=== PATIENT | male | born 1940 | race Caucasian/White ===

== ENCOUNTER 2016-10-24 15:15 | Emergency (ER) ==
[2016-10-24 15:34] VITALS: BP 96/64; TEMP 98.3; BMI 31.1
--- NOTE | 2016-10-24 15:50 | ED.PDOC ---
General ED Provider: Dr. MARCY SPRAGUE JR Chief Complaint: Cellulitis Stated Complaint: LEFT UPPER ARM RED, PURPLE WITH EDEMA AND DRAINING NOTED. PT STATES HE FELL ONE MONTH AGO.[End]98.3 82 16 97% 96/64. LEFT UPPER ARM WITH REDNESS AND SCANT AMOUNT OF DRAINAGE. PT STATES HE FELL OUT OF BED ONE MONTH AGO AT THE ALF. LEFT UPPER ARM WITH REDNESS AND SCANT AMOUNT OF DRAINAGE NOTED ON DRESSING. [ End ] Time Seen by Physician: 15:51 Mode of Arrival: Walk-In Information Source: Patient Exam Limitations: No limitations, Other (unable to visualise his own lesion) Primary Care Provider: MARGARITA HEATH Nursing and Triage Documentation Reviewed and Agree: No Skin Complaint Exam - Skin Rash/Itching Complaint/Exam Onset/Duration: 1 month Symptoms Are: Worse Initial Severity: Mild Current Severity: Moderate Location: left forearm Potential Exposures: Reports: Unknown Prior Treatment: bandage Aggravating: Reports: None Alleviating: Reports: None Associated Signs and Symptoms: Denies: Difficulty breathing, Fever, Chills Related History: Similar episode Skin Findings: Present: Purpura, Weeping skin (open area appears to be healing slightly tender slight weeping not a s pink as other areas ofskin damage on left elbow right forearm) Differential Diagnoses: Impetigo, Other (vacscular skin changes) Review of Systems - Review Of Systems Constitutional: Reports: No symptoms Eyes: Reports: No symptoms Ears, Nose, Mouth, Throat: Reports: No symptoms (concern for excess cerumen poor hearing in left ear full sensation on right- tms clear no cerumen bilat) Respiratory: Reports: No symptoms Cardiac: Reports: No symptoms GI: Reports: No symptoms : Reports: No symptoms Musculoskeletal: Reports: No symptoms Skin: Reports: Bruising, Lesions Neurological: Reports: No symptoms Endocrine: Reports: No symptoms Hematologic/Lymphatic: Reports: No symptoms All Other Systems: Other Past Medical History - Past Medical History Previously Healthy: No Endocrine: Reports: Other Cardiovascular: Reports: Other Respiratory: Reports: Other Hematological: Reports: Other Gastrointestinal: Reports: Other Genitourinary: Reports: Other Neuro/Psych: Reports: Other Musculoskeletal: Reports: Back Pain (chronic and shingles), Joint Pain (both shoulders) Cancer: Reports: Other Other Pertinent Past Medical History: MYASTHENIA;htn mi depr anx - Surgical History General Surgical History: Reports: CABG (left shoulder), Unknown - Family History Family History: Reports: Unknown - Social History Smoking Status: Former smoker Hx Substance Use: No Alcohol Screening: None - Immunizations Tetanus Shot up to Date: Yes Physical Exam - Physical Exam Appearance: Well-appearing Skin: Warm, Dry (note ecchymoses and area of slow ooze) Neurological: Sensation intact, Motor intact (limited ambulation), Reflexes intact, Cranial nerves intact, Alert, Oriented Psychiatric: Affect appropriate Critical Care Note - Critical Care Note Total Time (mins): 0 Course - Course Vital Signs: Temp Pulse Resp BP Pulse Ox 10/24/16 15:27 98.3 F 82 16 96/64 97 Departure - Departure Time of Disposition: 15:54 Disposition: HOME SELF-CARE Discharge Problem: Cellulitis Instructions: Cellulitis (ED) Condition: Good Pt referred to PMD for follow-up: Yes Additional Instructions: Bactrim for one week extra 8 ounces of water with each tablet Bacitracin twice a day for two weeks each forearm recheck 2-3 days Allergies/Adverse Reactions: Allergies tamsulosin HCl [From Flomax] Adverse Reaction (Verified 06/14/16 12:56) Home Medications: Ambulatory Orders Aspirin [Aspirin EC] 81 mg PO DAILYWM 01/14/14 Acetaminophen 650 mg PO TID PRN 03/11/14 Bisacodyl [Dulcolax] 1 supp.rect RC BID PRN 03/11/14 Diphenoxylate HCl/Atropine [Lomotil 2.5-0.025 mg Tablet] 1 each PO Q6HR PRN Ferrous Sulfate 325 mg PO DAILY 03/11/14 Insulin Regular, Human [Humulin R] 100 unit IJ BID PRN 03/11/14 Mag Hydrox/Al Hydrox/Simeth [Mylanta Susp] 30 ml PO Q6HR PRN 03/11/14 Magnesium Hydroxide [Milk of Magnesia] 30 ml PO DAILY PRN 03/11/14 Metoprolol Tartrate [Lopressor] 25 mg PO DAILY 03/11/14 Pyridostigmine [place] [Mestinon] 60 mg PO QID 03/11/14 Verapamil HCl [Calan Sr] 180 mg PO BEDTIME 03/11/14 Clopidogrel Bisulfate [Plavix] 75 mg PO DAILY 12/28/14 Ipratropium/Albuterol Sulfate [Duoneb 0.5 Mg-3 Mg/3 Ml Soln] 3 ml IH q4hprn 05/06 Lisinopril 20 mg PO DAILY 12/28/14 Loperamide HCl [Loperamide] 2 mg PO q6hprn PRN 12/28/14 Prednisone 5 mg PO DAILY 12/28/14 Alfuzosin HCl [Uroxatral] 10 mg PO DAILY 06/14/16 Budesonide/Formoterol Fumarate [Symbicort 80-4.5 Mcg Inhaler] 2 puff IH BID Cholecalciferol (Vitamin D3) [Vitamin D3] 2,000 unit PO DAILY 06/14/16 Duloxetine HCl [Cymbalta] 30 mg PO DAILY 06/14/16 Famciclovir [Famvir] 500 mg PO Q8H 06/14/16 Finasteride [Proscar] 5 mg PO DAILY 06/14/16 Furosemide [Lasix] 20 mg PO DAILY 06/14/16 Gabapentin [Neurontin] 100 mg PO BID 06/14/16 Guaifenesin [Cough Control] 200 mg PO Q4HR PRN 06/14/16 Hydrocodone Bit/Acetaminophen [Tyrone 10-325] 1 each PO Q6HR #60 tablet 06/14/16 Hydrocodone Bit/Acetaminophen [Tyrone 7.5-325] 1 tab PO DIRECTED 06/14/16 Lactobacillus Combination No.4 [Probiotic] 1 each PO DAILY 06/14/16 Melatonin [Melatin] 3 mg PO BEDTIME 06/14/16 Mycophenolate Mofetil [Cellcept] 1,500 mg PO BID 06/14/16 Nitroglycerin [Nitrostat] 0.4 mg SL Q5MIN X 3 DOSES PRN 06/14/16 Polyvinyl Alcohol [Artificial Tears] 1 drop EACHEYE DIRECTED PRN 06/14/16 Potassium Chloride 20 meq PO DAILY 06/14/16 Ranitidine HCl [Zantac] 150 mg PO BIDAC 06/14/16
[2016-10-24] MEDS ORDERED: POLYSPORIN 0.9 GM PACKET TP STA (15:55)
[2016-10-24] MEDS ORDERED: BACTRIM DS 800/160 MG PO STA (15:55)
== END 2016-10-24 16:48 | disposition home or self-care (01) ==
LOC: ED 15:15
DX: L03.114 Cellulitis of left upper limb (principal); W06.XXXS Fall from bed, sequela; Z79.899 Other long term (current) drug therapy
CPT/HCPCS: 99282

== ENCOUNTER 2018-01-25 02:35 | Inpatient (IN) | payer OTHER ==
--- NOTE | 2018-01-25 03:31 | ED.PDOC ---
General ED Provider: Dr. DORETHA CAVAZOS Chief Complaint: Weakness Stated Complaint: I feel weak and do not feel good. Denies symptoms. Nurse for NH states he has progressively worsened in past three days. In addition states has a reddeded swollen area under his rt arm-lat chest wall and axillary region. Time Seen by Physician: 03:15 Mode of Arrival: Wheelchair Information Source: Patient, [facility], Assisted Living Exam Limitations: No limitations Primary Care Provider: MARGARITA HEATH Nursing and Triage Documentation Reviewed and Agree: Yes Reviewed sepsis parameters & appropriate labs ordered?: Yes System Inflammatory Response Syndrome: Not Applicable Sepsis Protocol: For patient's 13 years and over: Temp is 96.8 and below OR 101 and greater Pulse >90 BPM Resp >20/minute Acutely Altered Mental Status Are patient's symptoms suggestive of a new infection, such as: -Pneumonia -Skin, Soft Tissue -Endocarditis -UTI -Bone, Joint Infection -Implantable Device -Acute Abdominal Infection -Wound Infection -Meningitis -Blood Stream Catheter Infection -Unknown System Inflammatory Response Syndrome: Not Applicable Miscellaneous Complaint Exam - Physical Examination Complaint/Exam Symptoms Are: Still present Timing: Constant Episodes Lasting: Hours Initial Severity: Moderate Current Severity: Moderate Location: Rt Axilla Character: dull aching Aggravating: movement Alleviating: rest Specific Findings: Large area of erythema in lat chest wall , axillary region with firm mass adherent to surrounding tissue approx 6 X6 cm Differential Diagnoses: Inflamatory mass Review of Systems - Review Of Systems Constitutional: Reports: Malaise, Weakness, Loss of appetite Eyes: Reports: Other (drainage) Ears, Nose, Mouth, Throat: Reports: No symptoms Respiratory: Reports: No symptoms Cardiac: Reports: No symptoms GI: Reports: No symptoms : Reports: No symptoms Musculoskeletal: Reports: No symptoms Skin: Reports: No symptoms, Lumps (rt axilla) Neurological: Reports: No symptoms Endocrine: Reports: No symptoms Hematologic/Lymphatic: Reports: No symptoms All Other Systems: Reviewed and Negative Past Medical History - Past Medical History Previously Healthy: No Endocrine: Reports: Other Cardiovascular: Reports: Other Respiratory: Reports: Other Hematological: Reports: Other Gastrointestinal: Reports: Other Genitourinary: Reports: Other Neuro/Psych: Reports: Other Musculoskeletal: Reports: Back Pain (chronic and shingles), Joint Pain (both shoulders) Cancer: Reports: Other Other Pertinent Past Medical History: MYASTHENIA;htn mi depr anx - Surgical History General Surgical History: Reports: CABG (left shoulder), Unknown - Family History Family History: Reports: Unknown - Social History Smoking Status: Former smoker Hx Substance Use: No Alcohol Screening: None - Immunizations Tetanus Shot up to Date: (UNKNOWN) Physical Exam - Physical Exam Appearance: Ill-appearing Ill-appearing: Moderate Pain Distress: Moderate Eyes: VIK, EOMI, Conjunctiva clear, Conjunctiva inflammed (Rt wtih prulent thick discharge) ENT: Ears normal, Nose normal, Oropharynx normal Respiratory: Airway patent, Breath sounds clear, Breath sounds equal, Respirations nonlabored Cardiovascular: RRR, Pulses normal, No rub, No murmur GI/: Soft (inguinal erythrema), Nontender, No masses, Bowel sounds normal, No Organomegaly Musculoskeletal: No calf tenderness Skin: Warm (large area erythrema rt axilla and lat chest wall ; 6 X 6 cm) Neurological: Sensation intact, Motor intact, Cranial nerves intact, Alert, Oriented Psychiatric: Affect appropriate, Mood appropriate, Anxious Critical Care Note - Critical Care Note Total Time (mins): 30 Course - Course Hematology/Chemistry: 01/25/18 03:40 01/25/18 03:40 Orders, Labs, Meds: Lab Review 01/25/18 01/25/18 01/25/18 03:40 03:40 03:40 WBC 22.47 H RBC 3.24 L Hgb 10.1 L Hct 29.4 L MCV 90.7 MCH 31.2 H MCHC 34.4 RDW Coeff of Bola 14.7 Plt Count 192 Immature Gran % (Auto) 0.8 Neut % (Auto) 86.0 Lymph % (Auto) 3.7 L [place] % (Auto) 9.3 Eos % (Auto) 0.0 Baso % (Auto) 0.2 Immature Gran # (Auto) 0.2 Neut # (Auto) 19.3 H Lymph # (Auto) 0.8 [place] # (Auto) 2.1 H Eos # (Auto) 0.0 Baso # (Auto) 0.0 ESR 34 H Sodium 135 L Potassium 3.8 Chloride 98 Carbon Dioxide 23 Anion Gap 17.8 BUN 17 Creatinine 1.10 Estimated GFR (MDRD) 65.00 BUN/Creatinine Ratio 15.45 Glucose 122 H Calcium 9.3 Total Bilirubin 1.2 AST 9 L ALT 7 L Alkaline Phosphatase 54 L Total Protein 6.2 Albumin 3.2 L Globulin 3.0 Albumin/Globulin Ratio 1.07 Urine Color Urine Clarity Urine pH Ur Specific [place] Urine Protein Urine Glucose (UA) Urine Ketones Urine Blood Urine Nitrite Urine Bilirubin Urine Urobilinogen Ur Leukocyte Esterase Urine Microscopic RBC Urine Microscopic WBC Ur Squamous Epith Cells Urine Bacteria Hyaline Casts Urine Yeast 01/25/18 03:58 WBC RBC Hgb Hct MCV MCH MCHC RDW Coeff of Bola Plt Count Immature Gran % (Auto) Neut % (Auto) Lymph % (Auto) [place] % (Auto) Eos % (Auto) Baso % (Auto) Immature Gran # (Auto) Neut # (Auto) Lymph # (Auto) [place] # (Auto) Eos # (Auto) Baso # (Auto) ESR Sodium Potassium Chloride Carbon Dioxide Anion Gap BUN Creatinine Estimated GFR (MDRD) BUN/Creatinine Ratio Glucose Calcium Total Bilirubin AST ALT Alkaline Phosphatase Total Protein Albumin Globulin Albumin/Globulin Ratio Urine Color Yellow Urine Clarity Clear Urine pH 5.5 Ur Specific [place] 1.020 Urine Protein 1+ Urine Glucose (UA) Negative Urine Ketones Negative Urine Blood Trace-intact Urine Nitrite Negative Urine Bilirubin Negative Urine Urobilinogen 0.2 Ur Leukocyte Esterase Negative Urine Microscopic RBC 0-2 Urine Microscopic WBC 0-2 Ur Squamous Epith Cells 2-5 Urine Bacteria Trace Hyaline Casts 0-2 Urine Yeast Trace Orders Category Date Time Status ACTIVITY .BR with BRP CARE 01/25/18 05:34 Ordered BLOOD GLUCOSE MONITORING 0630,1100,1700,2100 CARE 01/25/18 05:35 Ordered INTAKE & OUTPUT Q8HR CARE 01/25/18 05:34 Ordered VITAL SIGNS Q4HR CARE 01/25/18 05:34 Ordered IV [ED IV/MEDIPORT/POWERPORT] .ONCE EMERGENCY 01/25/18 04:04 Active BLOOD CULTURE (ED ONLY) Stat LAB 01/25/18 03:40 Received CBC W/ AUTO DIFF DAILY@0600 LAB 01/25/18 06:00 Ordered CBC W/ AUTO DIFF DAILY@0600 LAB 01/26/18 06:00 Ordered CBC W/ AUTO DIFF Stat LAB 01/25/18 03:40 Completed CMP [COMPREHENSIVE METABOLIC PANEL] Stat LAB 01/25/18 03:40 Completed COMPREHENSIVE METABOLIC PANEL DAILY@0600 LAB 01/25/18 06:00 Ordered COMPREHENSIVE METABOLIC PANEL DAILY@0600 LAB 01/26/18 06:00 Ordered ESR Stat LAB 01/25/18 03:40 Completed UA [URINALYSIS C & S IF INDICATED] Stat LAB 01/25/18 03:58 Completed 0.9 % Sodium Chloride [Saline Flush] MEDS 01/25/18 04:04 Ordered 1 syr IVF PRN PRN Acetaminophen [Tylenol] MEDS 01/25/18 05:34 Ordered 650 mg PO Q4H PRN Cefazolin Sodium [Ancef] MEDS 01/25/18 04:16 Discontinued 1 gm .ROUTE .STK-MED ONE Cefazolin Sodium [Ancef] MEDS 01/25/18 05:08 Discontinued 1 gm .ROUTE .STK-MED ONE Cefazolin Sodium [Ancef] MEDS 01/25/18 04:44 Discontinued 1 gm IM ONCE STA Enoxaparin Sodium [Lovenox] MEDS 01/25/18 06:00 Ordered 40 mg SUBCUT DAILY Ondansetron HCl/Pf [Zofran 4 mg/2 ml] MEDS 01/25/18 05:34 Ordered 4 mg IVP Q6H PRN Sodium Chloride 0.9% [Sodium Chloride] 1,000 ml MEDS 01/25/18 12:00 Ordered IV 125 mls/hr RESUSCITATION STATUS Routine OTHERS 01/25/18 05:[address] CHEST W/O CONTRAST Stat RADS 01/25/18 03:17 Completed SHOULDER, RIGHT MIN 2V Stat RADS 01/25/18 04:42 Ordered Medications Generic Name Dose Route Start Last Admin Trade Name Freq PRN Reason Stop Dose Admin Acetaminophen 650 mg 01/25/18 05:34 Tylenol PO Q4H PRN pain Enoxaparin Sodium 40 mg 01/25/18 06:00 Lovenox SUBCUT DAILY SUMA Sodium Chloride 1,000 mls @ 125 mls/hr 01/25/18 12:00 Sodium Chloride IV .Q8H SUMA Cefazolin Sodium 1 gm/ Sodium 100 mls @ 100 mls/hr 01/25/18 13:00 Chloride IV Q8HR SUMA Ondansetron HCl 4 mg 01/25/18 05:34 Zofran 4 Mg/2 Ml IVP Q6H PRN nausea and vomiting Sodium Chloride 1 syr 01/25/18 04:04 Saline Flush IVF PRN PRN To flush IV Discontinued Medications Generic Name Dose Route Start Last Admin Trade Name Freq PRN Reason Stop Dose Admin Cefazolin Sodium 1 gm 01/25/18 04:44 01/25/18 05:06 Ancef IM 01/25/18 04:45 1 gm ONCE STA Administration Vital Signs: Temp Pulse Resp BP Pulse Ox 01/25/18 02:36 100.7 F H 100 H 24 106/73 99 Departure - Departure Time of Disposition: 05:35 Disposition: ADMITTED INPATIENT Discharge Problem: Cellulitis of axilla, right, Mass of right axilla Condition: Fair Pt referred to PMD for follow-up: Yes (DR HEATH) IPMP verified?: No Allergies/Adverse Reactions: Allergies tamsulosin HCl [From Flomax] Adverse Reaction (Verified 01/25/18 02:42) TAPE ADHESIVES Adverse Reaction (Uncoded 01/25/18 02:42) Home Medications: Ambulatory Orders Aspirin [Aspirin EC] 81 mg PO DAILYWM 01/14/14 Acetaminophen 650 mg PO TID PRN 03/11/14 Ferrous Sulfate 325 mg PO DAILY 03/11/14 Mag Hydrox/Al Hydrox/Simeth [Mylanta Susp] 10 ml PO DIRECTED PRN 03/11/14 Magnesium Hydroxide [Milk of Magnesia] 30 ml PO DAILY PRN 03/11/14 Pyridostigmine [place] [Mestinon] 60 mg PO QID 03/11/14 Verapamil HCl [Calan Sr] 180 mg PO BEDTIME PRN 03/11/14 Clopidogrel Bisulfate [Plavix] 75 mg PO DAILY 12/28/14 Lisinopril 10 mg PO DAILY 12/28/14 Loperamide HCl [Loperamide] 2 mg PO q6hprn PRN 12/28/14 Prednisone 2.5 mg PO EVERY OTHER DAY 12/28/14 Alfuzosin HCl [Uroxatral] 10 mg PO DAILY 06/14/16 Budesonide/Formoterol Fumarate [Symbicort 80-4.5 Mcg Inhaler] 2 puff IH BID Cholecalciferol (Vitamin D3) [Vitamin D3] 2,000 unit PO DAILY 06/14/16 Finasteride [Proscar] 5 mg PO DAILY 06/14/16 Furosemide [Lasix] 40 mg PO DAILY 06/14/16 Guaifenesin [Cough Control] 200 mg PO Q4HR PRN 06/14/16 Melatonin [Melatin] 3 mg PO BEDTIME 06/14/16 Mycophenolate Mofetil [Cellcept] 1,500 mg PO BID 06/14/16 Nitroglycerin [Nitrostat] 0.4 mg SL Q5MIN X 3 DOSES PRN 06/14/16 Polyvinyl Alcohol [Artificial Tears] 1 drop EACHEYE DIRECTED PRN 06/14/16 Potassium Chloride 20 meq PO DAILY 06/14/16 Acetaminophen [Tylenol Extra Strength] 500 mg PO Q4H PRN 01/25/18 Atorvastatin Calcium 40 mg PO BEDTIME 01/25/18 Diphenhydramine HCl [Benadryl] 25 mg PO Q8H PRN 01/25/18 Duloxetine HCl [Cymbalta] 60 mg PO DAILY 01/25/18 Fiber Tablet 2 tab PO BID 01/25/18 Fleets Enema 1 applic RC DIRECTED PRN 01/25/18 Insulin Regular, Human [Novolin R] 1 unit SQ WEEKLY PRN 01/25/18 Lorazepam [Ativan] 0.5 mg PO BEDTIME 01/25/18 Pantoprazole Sodium [Protonix] 40 mg PO BIDAC 01/25/18 Promethazine HCl [Phenergan Tab] 25 mg PO Q6H PRN 01/25/18 Propylene Glycol/Peg 400/Pf [Systane 0.3-0.4% Eye Drops] 1 each OP DIRECTED PRN 01/25/18 Vit C/E/Zn/Coppr/Lutein/Zeaxan [Preservision Areds 2 Softgel] 1 each PO BID 03/09 Zolpidem Tartrate [Ambien] 5 mg PO BEDTIME 01/25/18 Disposition Discussed With: Patient
[2018-01-25] MEDS ORDERED: SODIUM CHLORIDE 1,000 ML IV STA (04:03)
[2018-01-25] MEDS ORDERED: ANCEF 1 GM in SODIUM CHLORIDE 100 ML IV STA (04:07)
[2018-01-25] MEDS ORDERED: SOLU-MEDROL 125 MG IM STA (04:08)
[2018-01-25] MEDS ORDERED: SOLU-MEDROL 125 MG IVP STA (04:12)
[2018-01-25] MEDS ORDERED: ANCEF ONE ×2 (04:16→05:08)
--- NOTE | 2018-01-25 04:36 | CT ---
Exam: CT of the chest without contrast History: Right lateral chest mass Technique: [address] of the chest without intravascular contrast FINDINGS: The lung windows show mild dependent atelectasis. No pleural fluid or pneumothorax. Athe rosclerotic calcification of the aorta and coronary arteries. Left approach pacemaker in place. No pathologic lymph node enlargement or abundance. There is some inflammatory stranding in the right ax illa. Much of the area concern has been excluded from the field of view. Partially visualized right shoulder shows advanced degenerative change with enlarged joint capsule and effusion. No acute findi ngs of the upper abdomen. Endplate degenerative change of the spine. Impression: 1. Minor dependent atelectasis of the lungs. No acute intrathoracic findings. 2. Deep fat stranding of the right axilla. A portion of the right upper chest has been excluded from the field of view. The area of concern has not been marked for direct comment. 3. Enlarged right shoulder joint with joint effusion.
[2018-01-25] MEDS ORDERED: ANCEF IM STA (04:44)
[2018-01-25] MEDS ORDERED: TYLENOL PO PRN ×2 (05:34→10:40)
[2018-01-25] MEDS ORDERED: ZOFRAN 4 MG/2 ML IVP PRN (05:34)
--- NOTE | 2018-01-25 06:41 | CT ---
Exam: CT of the right shoulder without contrast History:, mass Technique: [address] of the right shoulder with multiplanar reformations FINDINGS: Right axillary fat stranding extending dependently posteriorly to the subcutaneous fat. No organizing mass or collection. 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 No additional inflammation around the shoulder. No soft tissue mass is seen. No acute chest wall ab normality is seen otherwise. Impression: 1. Inflammatory stranding versus fluid infiltration of the right axilla and dependent subcutaneous f at. No organizing inflammatory mass or collection. The etiology is uncertain. Possible joint fluid leak. 2. Right shoulder joint effusion with joint surface remodeling.
[2018-01-25 06:50] VITALS: BMI 29.9
[2018-01-25] MEDS: SODIUM CHLORIDE 1,000 ML IV SCH ×2 (06:55→18:03)
[2018-01-25] MEDS: LOVENOX SUBCUT SCH ×2 (08:27→08:35)
[2018-01-25] MEDS ORDERED: HUMULIN R SUBCUT PRN ×2 (10:40→14:24)
[2018-01-25] MEDS ORDERED: ARTIFICIAL TEARS OPTH SOL OP PRN (10:40)
[2018-01-25] MEDS ORDERED: CALAN SR PO PRN (10:40)
[2018-01-25] MEDS ORDERED: IMODIUM PO PRN (10:40)
[2018-01-25] MEDS ORDERED: MILK OF MAGNESIA PO PRN ×3 (10:40→14:48)
[2018-01-25] MEDS ORDERED: PROPYLENE GLYCOL OP PRN (10:40)
[2018-01-25] MEDS ORDERED: [UNRECOGNIZED DRUG - OTHER] OP PRN (10:40)
[2018-01-25] MEDS ORDERED: ROBITUSSIN SUGAR-FREE PO PRN (10:40)
[2018-01-25] MEDS ORDERED: PHENERGAN TAB PO PRN (10:40)
[2018-01-25] MEDS ORDERED: PEG OP PRN (10:40)
[2018-01-25] MEDS ORDERED: NITROSTAT SL PRN (10:40)
[2018-01-25] MEDS ORDERED: NON-FORMULARY MEDICATION (Ferrous Sulfate [Ferrous Sulfate] 325 MG) PO SCH (10:45)
[2018-01-25] MEDS ORDERED: NON-FORMULARY MEDICATION (Cholecalciferol (Vitamin D3) [Vitamin D3] 2,000 UNIT) PO SCH (10:45)
[2018-01-25] MEDS ORDERED: NON-FORMULARY MEDICATION (Duloxetine Hcl [Cymbalta] 60 MG) PO SCH (10:45)
[2018-01-25] MEDS ORDERED: PREDNISONE PO SCH (11:00)
[2018-01-25] MEDS ORDERED: NON-FORMULARY MEDICATION (Lisinopril [Lisinopril] 10 MG) PO SCH (11:00)
[2018-01-25] MEDS ORDERED: VANCOMYCIN 1 GM in SODIUM CHLORIDE 250 ML IV SCH (11:00)
[2018-01-25] MEDS ORDERED: LASIX TAB PO SCH (11:00)
[2018-01-25] MEDS ORDERED: NON-FORMULARY MEDICATION (Potassium Chloride [Potassium Chloride] 20 MEQ) PO SCH (11:00)
[2018-01-25] MEDS: VANCOMYCIN 750 MG in SODIUM CHLORIDE 250 ML IV SCH ×2 (11:50→21:55)
[2018-01-25] MEDS: UROXATRAL PO SCH (11:55)
[2018-01-25] MEDS: ASPIRIN EC PO SCH (11:56)
[2018-01-25] MEDS: VITAMIN D PO SCH (11:57)
[2018-01-25] MEDS: PROTONIX PO SCH ×2 (11:57→17:16)
[2018-01-25] MEDS: PROSCAR PO SCH (11:58)
[2018-01-25] MEDS: CYMBALTA PO SCH (11:58)
[2018-01-25] MEDS: ZESTRIL PO SCH (11:58)
[2018-01-25] MEDS: LASIX TAB PO SCH (11:59)
[2018-01-25] MEDS: K-DUR PO SCH (11:59)
[2018-01-25] MEDS: FERROUS SULFATE PO SCH (11:59)
[2018-01-25] MEDS: PLAVIX PO SCH (12:00)
[2018-01-25] MEDS: SYMBICORT 80-4.5 MCG INHALER IH SCH ×2 (12:01→21:07)
[2018-01-25] MEDS: NORCO 7.5-325 PO SCH ×4 (12:06→20:58)
[2018-01-25] MEDS: PYRIDOSTIGMINE BROMIDE 60 MG PO SCH ×4 (13:25→21:55)
[2018-01-25] MEDS ORDERED: DECADRON 4 MG/ML SDV IVP STA (13:35)
[2018-01-25] MEDS: CLEOCIN PO SCH ×2 (14:01→20:59)
[2018-01-25] MEDS: ANCEF 1 GM in SODIUM CHLORIDE 100 ML IV SCH ×2 (14:01→20:36)
[2018-01-25] MEDS: MYCOPHENOLATE MOFETIL 1500 MG PO SCH ×2 (15:08→21:04)
[2018-01-25] MEDS: AMBIEN PO SCH (20:46)
[2018-01-25] MEDS: LIPITOR PO SCH (20:58)
[2018-01-25] MEDS ORDERED: NON-FORMULARY MEDICATION (Atorvastatin Calcium [Atorvastatin Calcium] 40 MG) PO SCH (21:00)
[2018-01-25] MEDS: FIBER PO SCH (21:02)
[2018-01-25] MEDS: MELATONIN 3 MG PO SCH (21:07)
[2018-01-25] MEDS: ATIVAN PO SCH (21:13)
[2018-01-26] MEDS: ANCEF 1 GM in SODIUM CHLORIDE 100 ML IV SCH ×3 (04:45→20:56)
[2018-01-26] MEDS: LASIX TAB PO SCH (05:48)
[2018-01-26] MEDS: PROTONIX PO SCH ×2 (05:49→16:50)
[2018-01-26] MEDS: CLEOCIN PO SCH (05:49)
[2018-01-26] MEDS: SODIUM CHLORIDE 1,000 ML IV SCH ×2 (05:52→21:08)
[2018-01-26] MEDS ORDERED: TORADOL IVP PRN (08:11)
[2018-01-26] MEDS ORDERED: HUMULIN R SUBCUT PRN (08:25)
[2018-01-26] MEDS ORDERED: DECADRON 4 MG/ML SDV IVP ONE (09:00)
[2018-01-26] MEDS: CYMBALTA PO SCH (09:12)
[2018-01-26] MEDS: ASPIRIN EC PO SCH (09:12)
[2018-01-26] MEDS: DECADRON 4 MG/ML SDV IM SCH (09:13)
[2018-01-26] MEDS: FIBER PO SCH ×2 (09:14→21:10)
[2018-01-26] MEDS: FERROUS SULFATE PO SCH (09:14)
[2018-01-26] MEDS: K-DUR PO SCH (09:15)
[2018-01-26] MEDS: VANCOMYCIN 750 MG in SODIUM CHLORIDE 250 ML IV SCH ×2 (09:16→22:16)
[2018-01-26] MEDS: MYCOPHENOLATE MOFETIL 1500 MG PO SCH ×2 (09:19→21:10)
[2018-01-26] MEDS: PLAVIX PO SCH (09:20)
[2018-01-26] MEDS: NORCO 7.5-325 PO SCH ×4 (09:20→21:09)
[2018-01-26] MEDS: PROSCAR PO SCH (09:21)
[2018-01-26] MEDS: PYRIDOSTIGMINE BROMIDE 60 MG PO SCH ×4 (09:21→21:11)
[2018-01-26] MEDS: SYMBICORT 80-4.5 MCG INHALER IH SCH ×2 (09:22→21:09)
[2018-01-26] MEDS: VITAMIN D PO SCH (09:23)
[2018-01-26] MEDS: UROXATRAL PO SCH (09:23)
[2018-01-26] MEDS: ZESTRIL PO SCH (09:24)
[2018-01-26] MEDS: LOVENOX SUBCUT SCH (09:24)
--- NOTE | 2018-01-26 09:35 | PCM.PROG ---
Attending Provider: ATTENDING PROVIDER: Dr. MARGARITA HEATH This patient is seen with Monet Hays, Nurse Practitioner. DATE OF SERVICE: 01/26/18 SUBJECTIVE: This 77 year old WHITE/ M was hospitalized 01/25/18. The patient is lying in bed alert. He is still complaining of pain right axilla. CT scan was rather inconclusive. Will do ultrasound of right axilla and soft tissue. No fever since admission. REVIEW OF SYSTEMS: CONSTITUTIONAL: No night sweats. No fatigue, malaise, lethargy. No fever or chills. HEENT: Eyes: No visual changes. No eye pain. No eye discharge. ENT: No runny nose. No epistaxis. No sinus pain. No odynophagia. No congestion. RESPIRATORY: No cough, no congestion. No hemoptysis. No shortness of breath. CARDIOVASCULAR: No angina symptoms. No CHF symptoms. No atypical chest pain for CAD. No palpitations. No orthopnea.. GASTROINTESTINAL: No abdominal pain. No nausea or vomiting. No diarrhea or constipation. No hematemesis. No hematochezia. GENITOURINARY: No urgency. No frequency. No dysuria. No hematuria. No obstructive symptoms. No discharge. No pain. No significant abnormal bleeding. MUSCULOSKELETAL: No musculoskeletal pain; no joint swelling. NEUROLOGICAL: Awake, alert. No headache. No neck pain. No syncope. No seizures. No dizziness. PSYCHIATRIC: Not anxious. No depression. No suicidal thoughts. No homicidal thoughts. SKIN: Right axilla cellulitis. ENDOCRINE: No unexplained weight loss. No weight gain. HEMATOLOGIC/LYMPHATIC: No anemia. No purpura. No petechiae. No prolonged or excessive bleeding. No palpable lymph nodes. PHYSICAL EXAMINATION: GENERAL: The patient is awake, alert and oriented, lying in bed in no distress. VITAL SIGNS: Temperature 98.0 F, Pulse 66, Respiratory Rate 12, BP 106/68, Pulse Ox 95% HEENT: Head normocephalic, atraumatic. Eyes: Extraocular muscles are intact. Pupils are equal, round and reactive to light and accommodation. Ears: No lesions. Nose appeared normal. Throat: No exudate or erythema. NECK: Supple. No JVD, no carotid bruit. No lymphadenopathy or thyromegaly. LUNGS: Diminished breath sounds. Clear to auscultation. Percussion note normal. Chest symmetrical. HEART: S1, S2, no S3. Grade II/ murmur. No cyanosis or clubbing. No ascites. Pulses: Dorsalis pedis and posterior tibial pulses +1 to +2 both sides. ABDOMEN: Soft. Non-tender. Bowel sounds active. No CVA tenderness. No mass felt. EXTREMITIES: Leg weakness. No edema. Full range of motion of all extremities, equal. NEUROLOGIC: No focal deficit. Cranial nerves II through XII are grossly intact. No headache, no double vision or headache. SKIN: Warm and dry. 6" in diameter area of erythema with mild tenderness, slight firmness with no definite induration and no drainage. LYMPHATIC: No palpable lymph nodes/no lymphedema. MUSCULOSKELETAL: Normal joints with no swelling. Muscle tone is normal. LAB REVIEW: 01/26/18 04:35 01/26/18 04:35 01/26/18 04:35: Sodium 138, Potassium 3.6, Chloride 103, Carbon Dioxide 22 L, Anion Gap 16.6, BUN 20 H, Creatinine 1.09, Estimated GFR (MDRD) 65.00, BUN/ Creatinine Ratio 18.34, Glucose 127 H, Calcium 8.4, Total Bilirubin 0.6, AST 9 L , ALT 6 L, Alkaline Phosphatase 50 L, Total Protein 4.9 L, Albumin 2.7 L, Globulin 2.2, Albumin/Globulin Ratio 1.23 01/26/18 04:35: WBC 24.05 H, RBC 2.91 L, Hgb 9.0 L, Hct 26.5 L, MCV 91.1, MCH 30.9, MCHC 34.0, RDW Coeff of Bola 14.7, Plt Count 172, Immature Gran % (Auto) 0.5, Neut % (Auto) 89.2, Lymph % (Auto) 4.5 L, [place] % (Auto) 5.7, Eos % (Auto) 0.0, Baso % (Auto) 0.1, Immature Gran # (Auto) 0.1, Neut # (Auto) 21.4 H, Lymph # (Auto) 1.1, [place] # (Auto) 1.4, Eos # (Auto) 0.0, Baso # (Auto) 0.0 ASSESSMENT: 1. Cellulitis right axilla 2. Anemia 3. Aortic stenosis 4. Myasthenia gravis 5. History of CHF 6. Anxiety 7. CAD 8. Diabetes mellitus Type 2 PLAN: 1. Decrease IV fluids to 50 mL 2. Decadron 4 mg once a day IM 3. US of right axilla and soft tissue 4. Hold p.o. Prednisone 5. Toradol 30 mg IV p.r.n. Plan and coordination of the patient's care discussed in the presence of Fish Packer and nurse. CONDITION: Stable SCRIBED BY: Christopher ESQUIVEL scribed while in presence of service performed by Dr. Heath/Monet Hays APRN on 01/26/18 ([id number])
--- NOTE | 2018-01-26 10:24 | US ---
EXAM: Ultrasound of the right axilla. History: Right axillary swelling and tenderness. Technique: Multiple sonographic images through the right axilla were obtained. Color duplex Doppler was used to interrogate vascular flow. Findings / impression: Extensive subcutaneous edema/cellulitis. Question 1.2 cm right axillary mass versus phlegmonous change. Consider further evaluation with contrast enhanced chest CT.
--- NOTE | 2018-01-26 11:20 | PN ---
DATE OF SERVICE: 01/25/18 SUBJECTIVE: 77 year old white male hospitalized with right axillary and posterior interscapular area cellulitis duration three days. According to the patient he has been having some pain past 3-4 day in the that area. I was called by the nursing staff from the retirement on 01/25/18 and I instructed them to send the patient to the emergency room and the patient was seen and examined by Dr. Acosta and was hospitalized this morning with infected mass with cellulitis of the right axillary and posterior scapular area and right upper chest. REVIEW OF SYSTEMS: CONSTITUTIONAL: No night sweats. No fatigue, malaise, lethargy. No fever or chills. HEENT: Eyes: No visual changes. No eye pain. No eye discharge. ENT: No runny nose. No epistaxis. No sinus pain. No sore throat. No odynophagia. No congestion. RESPIRATORY: No cough, no congestion. No hemoptysis. No shortness of breath. CARDIOVASCULAR: No angina symptoms. No CHF symptoms. No atypical chest pain for CAD. No palpitations. No orthopnea. GASTROINTESTINAL: No abdominal pain. No nausea or vomiting. No diarrhea or constipation. No hematemesis. No hematochezia. GENITOURINARY: No urgency. No frequency. No dysuria. No hematuria. No obstructive symptoms. No discharge. No pain. No significant abnormal bleeding. MUSCULOSKELETAL: No musculoskeletal pain; no joint swelling. NEUROLOGICAL: No headache. No neck pain. No syncope. No seizures. No dizziness. PSYCHIATRIC: Not anxious. No depression. No suicidal thoughts. No homicidal thoughts. SKIN: No rash. No lesions. No wounds. ENDOCRINE: No unexplained weight loss. No weight gain. HEMATOLOGIC/LYMPHATIC: No anemia. No purpura. No petechiae. No prolonged or excessive bleeding. No palpable lymph nodes. MEDICAL HISTORY: Significant for myasthenia gravis Hypertension Dyslipidemia Coronary bypass surgery PHYSICAL EXAMINATION: VITALS:Temperature was 100.7 with pulse of 100, respiratory rate 24, blood pressure 106/73 with 99% saturation in the emergency room. HEENT: Head normocephalic, atraumatic. Eyes: Extraocular muscles are intact. Pupils are equal, round and reactive to light and accommodation. Ears: No lesions. Nose appeared normal. Throat: No exudate or erythema. NECK: Supple. No JVD, no carotid bruit. No lymphadenopathy or thyromegaly. LUNGS: Clear to auscultation. Percussion note normal. Chest symmetrical. HEART: S1, S2, no S3. No murmurs. No cyanosis or clubbing. No ascites. Pulses: Dorsalis pedis and posterior tibial pulses +1 to +2 both sides. ABDOMEN: Soft. Nontender. Bowel sounds active. No CVA tenderness. No mass felt. EXTREMITIES: No edema. Full range of motion of all extremities, equal. Red swollen area under the right arm and left lateral chest wall and axillary area. NEUROLOGIC: No focal deficit. Cranial nerves II through XII are grossly intact. No headache, no double vision or headache. SKIN: Not dry. Intact. Turgor - normal. LYMPHATIC: No palpable lymph nodes/no lymphedema. MUSCULOSKELETAL: Normal joints with no swelling. Muscle tone is normal. LABS: WBC was 22,000 with hgb of 10. ASSESSMENT: 1. Cellulitis of the chest wall and axillary area duration three days. PLAN: 1. Given Ancef Q 8 hours 1 gram 2. Vancomycin 1 gram Q 12 hours 3. Clindamycin 300mg Q 8 hours 4. 1cc Decadron today and tomorrow 5. The patient is on multiple medications significant ones are Pyridostimgmine Moroni 60mg PO four times a day, Verapamil 180mg at night time, Plavix 75, Lisinopril 10mg and Prednisone 2.5 every other day. CONDITION: Stable. TIME SPENT: More than 30 minutes. Plan and coordination of the patient's care discussed in the presence of nurse. LIBORIO
[2018-01-26] MEDS: LIPITOR PO SCH (21:08)
[2018-01-26] MEDS: ATIVAN PO SCH (21:09)
[2018-01-26] MEDS: MELATONIN 3 MG PO SCH (21:09)
[2018-01-26] MEDS: AMBIEN PO SCH (21:09)
[2018-01-27] MEDS: ANCEF 1 GM in SODIUM CHLORIDE 100 ML IV SCH ×3 (04:17→21:03)
[2018-01-27] MEDS: PROTONIX PO SCH ×2 (05:55→16:55)
[2018-01-27] MEDS: LASIX TAB PO SCH (05:55)
[2018-01-27] MEDS: SODIUM CHLORIDE 1,000 ML IV SCH (09:19)
[2018-01-27] MEDS: VANCOMYCIN 750 MG in SODIUM CHLORIDE 250 ML IV SCH ×2 (09:47→22:12)
[2018-01-27] MEDS: ASPIRIN EC PO SCH (09:50)
[2018-01-27] MEDS: CLEOCIN PO SCH ×3 (09:51→21:00)
[2018-01-27] MEDS: CYMBALTA PO SCH (09:51)
[2018-01-27] MEDS: DECADRON 4 MG/ML SDV IM SCH (09:52)
--- NOTE | 2018-01-27 09:52 | PCM.PROG ---
Attending Provider: ATTENDING PROVIDER: Dr. MARGARITA HEATH This patient is seen with Monet Hays, Nurse Practitioner. DATE OF SERVICE: 01/27/18 SUBJECTIVE: This 77 year old WHITE/ M was hospitalized 01/25/18. The patient is lying in bed, alert. He states pain is improved. Ultrasound of right axilla revealed soft tissue edema. Erythema slightly improved; however, has spread some. The patient is afebrile and not eating much. REVIEW OF SYSTEMS: CONSTITUTIONAL: No night sweats. No fatigue, malaise, lethargy. No fever or chills. HEENT: Eyes: No visual changes. No eye pain. No eye discharge. ENT: No runny nose. No epistaxis. No sinus pain. No odynophagia. No congestion. RESPIRATORY: No cough, no congestion. No hemoptysis. No shortness of breath. CARDIOVASCULAR: No angina symptoms. No CHF symptoms. No atypical chest pain for CAD. No palpitations. No orthopnea.. GASTROINTESTINAL: No abdominal pain. No nausea or vomiting. No diarrhea or constipation. No hematemesis. No hematochezia. GENITOURINARY: No urgency. No frequency. No dysuria. No hematuria. No obstructive symptoms. No discharge. No pain. No significant abnormal bleeding. MUSCULOSKELETAL: No musculoskeletal pain; no joint swelling. NEUROLOGICAL: Awake, alert, oriented to time, place and person. No headache. No neck pain. No syncope. No seizures. No dizziness. PSYCHIATRIC: Not anxious. No depression. No suicidal thoughts. No homicidal thoughts. SKIN: Red lesion right axilla. ENDOCRINE: No unexplained weight loss. No weight gain. HEMATOLOGIC/LYMPHATIC: No anemia. No purpura. No petechiae. No prolonged or excessive bleeding. No palpable lymph nodes. PHYSICAL EXAMINATION: GENERAL: The patient is awake, alert and oriented, lying in bed in no distress. VITAL SIGNS: Temperature 97.4 F, Pulse 63, Respiratory Rate 16, BP 122/74, Pulse Ox 98% HEENT: Head normocephalic, atraumatic. Eyes: Extraocular muscles are intact. Pupils are equal, round and reactive to light and accommodation. Ears: No lesions. Nose appeared normal. Throat: No exudate or erythema. NECK: Supple. No JVD, no carotid bruit. No lymphadenopathy or thyromegaly. LUNGS: Clear to auscultation. Percussion note normal. Chest symmetrical. HEART: S1, S2, no S3. Grade II/ murmur. No cyanosis or clubbing. No ascites. Pulses: Dorsalis pedis and posterior tibial pulses +1 to +2 both sides. ABDOMEN: Soft. Non-tender. Bowel sounds active. No CVA tenderness. No mass felt. EXTREMITIES: No edema. Full range of motion of all extremities, equal. NEUROLOGIC: No focal deficit. Cranial nerves II through XII are grossly intact. No headache, no double vision or headache. SKIN: Warm and dry. 8" area of induration improving erythema, mild tenderness and firmness. No drainage. LYMPHATIC: No palpable lymph nodes/no lymphedema. MUSCULOSKELETAL: Normal joints with no swelling. Muscle tone is normal. LAB REVIEW: 01/27/18 05:00 01/27/18 05:00 01/27/18 05:00: Sodium 137, Potassium 3.7, Chloride 106, Carbon Dioxide 20 L, Anion Gap 14.7, BUN 28 H, Creatinine 1.13 H, Estimated GFR (MDRD) 63.00, BUN/ Creatinine Ratio 24.77, Glucose 117 H, Calcium 8.8, Total Bilirubin 0.3, AST 8 L , ALT < 6 L, Alkaline Phosphatase 60, Total Protein 5.6 L, Albumin 2.5 L, Globulin 3.1, Albumin/Globulin Ratio 0.81 01/27/18 05:00: WBC 21.42 H, RBC 3.13 L, Hgb 9.6 L, Hct 28.4 L, MCV 90.7, MCH 30.7, MCHC 33.8, RDW Coeff of [place] 14.7, Plt Count 202, Immature Gran % (Auto) 0.7, Neut % (Auto) 91.9, Lymph % (Auto) 3.1 L, [place] % (Auto) 4.2, Eos % (Auto) 0.0, Baso % (Auto) 0.1, Immature Gran # (Auto) 0.1, Neut # (Auto) 19.7 H, Lymph # (Auto) 0.7, [place] # (Auto) 0.9, Eos # (Auto) 0.0, Baso # (Auto) 0.0 ASSESSMENT: 1. Cellulitis right axilla 2. Anemia 3. Aortic stenosis 4. Myasthenia gravis 5. History of CHF 6. Anxiety 7. CAD 8. Diabetes mellitus Type 2 PLAN: 1. Continue IV antibiotics 2. Alternate warm and cool compresses 3. Clindamycin 300 mg p.o. t.i.d. Plan and coordination of the patient's care discussed in the presence of Structural Iron Worker and nurse. CONDITION: Stable SCRIBED BY: KALA ROPER Head Of Physics scribed while in presence of service performed by Dr. Heath/Monet Hays APRN on 01/27/18 ([id number])
[2018-01-27] MEDS: FERROUS SULFATE PO SCH (09:53)
[2018-01-27] MEDS: FIBER PO SCH ×2 (09:54→21:02)
[2018-01-27] MEDS: K-DUR PO SCH (09:55)
[2018-01-27] MEDS: MYCOPHENOLATE MOFETIL 1500 MG PO SCH ×2 (09:56→21:05)
[2018-01-27] MEDS: PROSCAR PO SCH (09:57)
[2018-01-27] MEDS: PLAVIX PO SCH (09:57)
[2018-01-27] MEDS: PYRIDOSTIGMINE BROMIDE 60 MG PO SCH ×4 (09:58→21:04)
[2018-01-27] MEDS: UROXATRAL PO SCH (09:59)
[2018-01-27] MEDS: VITAMIN D PO SCH (10:00)
[2018-01-27] MEDS: ZESTRIL PO SCH (10:00)
[2018-01-27] MEDS: NORCO 7.5-325 PO SCH ×4 (10:00→21:01)
[2018-01-27] MEDS: SYMBICORT 80-4.5 MCG INHALER IH SCH ×2 (10:01→21:02)
[2018-01-27] MEDS: LOVENOX SUBCUT SCH (10:02)
--- NOTE | 2018-01-27 14:41 | PN ---
DATE OF SERVICE: 01/26/18 SUBJECTIVE: The patient was seen today. He is feeling a lot better. He was hospitalized with cellulitis of the right axillary area and chest wall. The patient has been treated with Clindamycin, Vancomycin and Ancef. Decadron is being given. His pain is much less. He is comfortable and is afebrile. The patient was seen and examined with the nurse practitioner. TIME SPENT: More than 30 minutes. Plan and coordination of the patient's care discussed in the presence of nurse. LIBOROI
[2018-01-27] MEDS: MYLANTA SUSP PO PRN (17:00)
[2018-01-27] MEDS: LIPITOR PO SCH (21:01)
[2018-01-27] MEDS: ATIVAN PO SCH (21:01)
[2018-01-27] MEDS: AMBIEN PO SCH (21:01)
[2018-01-27] MEDS: MELATONIN 3 MG PO SCH (21:02)
[2018-01-28] MEDS: MYLANTA SUSP PO PRN ×3 (01:21→23:46)
[2018-01-28] MEDS: CLEOCIN PO SCH ×3 (04:42→21:46)
[2018-01-28] MEDS: ANCEF 1 GM in SODIUM CHLORIDE 100 ML IV SCH ×3 (04:42→21:42)
[2018-01-28] MEDS: PROTONIX PO SCH ×2 (05:41→17:31)
[2018-01-28] MEDS: LASIX TAB PO SCH (05:41)
[2018-01-28] MEDS: SODIUM CHLORIDE 1,000 ML IV SCH ×2 (08:49→13:41)
[2018-01-28] MEDS: VANCOMYCIN 750 MG in SODIUM CHLORIDE 250 ML IV SCH (09:42)
[2018-01-28] MEDS: LOVENOX SUBCUT SCH (09:46)
[2018-01-28] MEDS: PLAVIX PO SCH (09:52)
[2018-01-28] MEDS: CYMBALTA PO SCH (09:53)
[2018-01-28] MEDS: PROSCAR PO SCH (09:54)
[2018-01-28] MEDS: FERROUS SULFATE PO SCH (09:54)
[2018-01-28] MEDS: K-DUR PO SCH (09:54)
[2018-01-28] MEDS: NORCO 7.5-325 PO SCH ×4 (09:54→21:46)
[2018-01-28] MEDS: VITAMIN D PO SCH (09:55)
[2018-01-28] MEDS: UROXATRAL PO SCH (09:55)
[2018-01-28] MEDS: FIBER PO SCH ×2 (09:55→21:44)
--- NOTE | 2018-01-28 09:56 | PCM.PROG ---
Attending Provider: ATTENDING PROVIDER: Dr. MARGARITA HEATH DATE OF SERVICE: 01/28/18 SUBJECTIVE: This 77 year old WHITE/ M was hospitalized 01/25/18 with cellulitis of right axillary area and scapular area. Tenderness much less on physical examination. No fever, no chills. The patient is feeling better. REVIEW OF SYSTEMS: CONSTITUTIONAL: No night sweats. No fatigue, malaise, lethargy. No fever or chills. HEENT: Eyes: No visual changes. No eye pain. No eye discharge. ENT: No runny nose. No epistaxis. No sinus pain. No odynophagia. No congestion. RESPIRATORY: No cough, no congestion. No hemoptysis. No shortness of breath. CARDIOVASCULAR: No angina symptoms. No CHF symptoms. No atypical chest pain for CAD. No palpitations. No orthopnea.. GASTROINTESTINAL: No abdominal pain. No nausea or vomiting. No diarrhea or constipation. No hematemesis. No hematochezia. GENITOURINARY: No urgency. No frequency. No dysuria. No hematuria. No obstructive symptoms. No discharge. No pain. No significant abnormal bleeding. MUSCULOSKELETAL: No musculoskeletal pain; no joint swelling. NEUROLOGICAL: Awake, alert, oriented to time, place and person. No headache. No neck pain. No syncope. No seizures. No dizziness. PSYCHIATRIC: Not anxious. No depression. No suicidal thoughts. No homicidal thoughts. SKIN: Less redness of the right axillary area. ENDOCRINE: No unexplained weight loss. No weight gain. HEMATOLOGIC/LYMPHATIC: No anemia. No purpura. No petechiae. No prolonged or excessive bleeding. No palpable lymph nodes. PHYSICAL EXAMINATION: GENERAL: The patient is awake, alert and oriented, lying in bed in no distress. VITAL SIGNS: Temperature 97.5 F, Pulse 66, Respiratory Rate 16, BP 156/75, Pulse Ox 98% HEENT: Head normocephalic, atraumatic. Eyes: Extraocular muscles are intact. Pupils are equal, round and reactive to light and accommodation. Ears: No lesions. Nose appeared normal. Throat: No exudate or erythema. NECK: Supple. No JVD, no carotid bruit. No lymphadenopathy or thyromegaly. LUNGS: Clear to auscultation. Percussion note normal. Chest symmetrical. HEART: S1, S2, no S3. No murmurs. No cyanosis or clubbing. No ascites. Pulses: Dorsalis pedis and posterior tibial pulses +1 to +2 both sides. ABDOMEN: Soft. Non-tender. Bowel sounds active. No CVA tenderness. No mass felt. EXTREMITIES: No edema. Full range of motion of all extremities, equal. NEUROLOGIC: No focal deficit. Cranial nerves II through XII are grossly intact. No headache, no double vision or headache. SKIN: Warm and dry. Less redness of the axillary area on the right. Turgor- normal. LYMPHATIC: No palpable lymph nodes/no lymphedema. MUSCULOSKELETAL: Normal joints with no swelling. Muscle tone is normal. LAB REVIEW: 01/28/18 04:30 01/28/18 04:30 01/28/18 04:30: Sodium 135 L, Potassium 3.8, Chloride 105, Carbon Dioxide 20 L, Anion Gap 13.8, BUN 30 H, Creatinine 1.36 H, Estimated GFR (MDRD) 51.00, BUN/ Creatinine Ratio 22.05, Glucose 114, Calcium 8.3, Total Bilirubin 0.2, AST 12 L , ALT < 6 L, Alkaline Phosphatase 50 L, Total Protein 5.1 L, Albumin 2.3 L, Globulin 2.8, Albumin/Globulin Ratio 0.82 01/28/18 04:30: WBC 17.50 H, RBC 2.90 L, Hgb 8.9 L, Hct 25.8 L, MCV 89.0, MCH 30.7, MCHC 34.5, RDW Coeff of [place] 14.4, Plt Count 226, Immature Gran % (Auto) 0.6, Neut % (Auto) 90.1, Lymph % (Auto) 4.7 L, [place] % (Auto) 4.5, Eos % (Auto) 0.0, Baso % (Auto) 0.1, Immature Gran # (Auto) 0.1, Neut # (Auto) 15.8 H, Lymph # (Auto) 0.8, [place] # (Auto) 0.8, Eos # (Auto) 0.0, Baso # (Auto) 0.0 ASSESSMENT: 1. Less redness of the right axillary area with possibility of mild shoulder swelling. PLAN: 1. Continue all antibiotics 2. D/C IV fluids 3. CT scan with contrast right shoulder 4. Will undergo echo to evaluate LV function with history of CABG 5. Will do CT scan of right shoulder with contrast, will designate area of CT scan Plan and coordination of the patient's care discussed in the presence of Business Control Specialist and nurse. CONDITION: Stable SCRIBED BY: KALA ROPER Weaver Hand Loom scribed while in presence of service performed by Dr. MARGARITA HEATH on 01/28/18 ([id number])
[2018-01-28] MEDS: SYMBICORT 80-4.5 MCG INHALER IH SCH ×2 (09:57→21:44)
[2018-01-28] MEDS: ASPIRIN EC PO SCH (09:59)
[2018-01-28] MEDS: DECADRON 4 MG/ML SDV IM SCH (10:00)
[2018-01-28] MEDS: PYRIDOSTIGMINE BROMIDE 60 MG PO SCH ×4 (10:01→21:47)
[2018-01-28] MEDS: MYCOPHENOLATE MOFETIL 1500 MG PO SCH ×2 (10:01→21:48)
[2018-01-28] MEDS: ZESTRIL PO SCH (10:04)
--- NOTE | 2018-01-28 10:28 | CT ---
EXAM: CT chest with contrast. HISTORY: Right axillary mass, cellulitis. Right shoulder joint effusion. COMPARISON: 01/25/2018. TECHNIQUE: Multiple axial images of the chest were obtained following intravenous administration of 75 mL of Visipaque 320, low osmolar. Images were reformatted in the sagittal and coronal planes. FINDINGS: There is a large right shoulder joint effusion although this is incompletely imaged on thi s examination. There is moderate edema within the right axilla without subcutaneous air or drainable fluid collection. It should be noted that the lateral most aspect of the right axilla is not include d on the examination. There may be some edema along the lateral chest wall musculature as well. Left-sided electronic cardiac device is present. Heart is mildly enlarged but atherosclerotic calcif ications present. No pericardial effusion detected. Tiny bilateral pleural effusions are present. There is dependent subsegmental atelectasis in both lo wer lobes. No pneumothorax identified. Bilateral gynecomastia noted. Limited images of the upper abdomen demonstrate no acute abnormality IMPRESSION: 1. Right axillary cellulitis. No discrete mass or fluid collection identified. Follow-up ultrasound should be considered if symptoms persist. 2. Large right shoulder joint effusion, incompletely imaged. 3. Tiny bilateral pleural effusions with dependent subsegmental atelectasis in both lower lobes.
[2018-01-28] MEDS: MELATONIN 3 MG PO SCH (21:44)
[2018-01-28] MEDS: LIPITOR PO SCH (21:45)
[2018-01-28] MEDS: ATIVAN PO SCH (21:45)
[2018-01-28] MEDS: AMBIEN PO SCH (21:46)
[2018-01-28] MEDS: VANCOMYCIN 1 GM in SODIUM CHLORIDE 250 ML IV SCH (23:31)
[2018-01-29] MEDS: ANCEF 1 GM in SODIUM CHLORIDE 100 ML IV SCH ×3 (04:30→21:31)
[2018-01-29] MEDS: CLEOCIN PO SCH ×3 (04:30→21:40)
[2018-01-29] MEDS: LASIX TAB PO SCH (05:33)
[2018-01-29] MEDS: PROTONIX PO SCH ×2 (05:33→17:37)
--- NOTE | 2018-01-29 09:43 | PCM.PROG ---
Attending Provider: ATTENDING PROVIDER: Dr. MARGARITA HEATH This patient is seen with Monet Hays, Nurse Practitioner. DATE OF SERVICE: 01/29/18 SUBJECTIVE: This 77 year old WHITE/ M was hospitalized 01/25/18. The patient is lying in bed, alert. Redness in axilla improving. He has developed superficial reactive dermatitis to upper chest. He reports mild itching, not generalized. REVIEW OF SYSTEMS: CONSTITUTIONAL: No night sweats. No fatigue, malaise, lethargy. No fever or chills. HEENT: Eyes: No visual changes. No eye pain. No eye discharge. ENT: No runny nose. No epistaxis. No sinus pain. No odynophagia. No congestion. RESPIRATORY: No cough, no congestion. No hemoptysis. No shortness of breath. CARDIOVASCULAR: No angina symptoms. No CHF symptoms. No atypical chest pain for CAD. No palpitations. No orthopnea.. GASTROINTESTINAL: No abdominal pain. No nausea or vomiting. No diarrhea or constipation. No hematemesis. No hematochezia. GENITOURINARY: No urgency. No frequency. No dysuria. No hematuria. No obstructive symptoms. No discharge. No pain. No significant abnormal bleeding. MUSCULOSKELETAL: No musculoskeletal pain; no joint swelling. NEUROLOGICAL: Awake, alert, oriented to time, place and person. No headache. No neck pain. No syncope. No seizures. No dizziness. PSYCHIATRIC: Not anxious. No depression. No suicidal thoughts. No homicidal thoughts. SKIN: Improving swelling and redness to right axilla. Superficial reactive dermatitis to upper chest. ENDOCRINE: No unexplained weight loss. No weight gain. HEMATOLOGIC/LYMPHATIC: No anemia. No purpura. No petechiae. No prolonged or excessive bleeding. No palpable lymph nodes. PHYSICAL EXAMINATION: GENERAL: The patient is awake, alert and oriented, lying in bed in no distress. VITAL SIGNS: Temperature 97.3 F, Pulse 64, Respiratory Rate 16, BP 165/82, Pulse Ox 98% HEENT: Head normocephalic, atraumatic. Eyes: Extraocular muscles are intact. Pupils are equal, round and reactive to light and accommodation. Ears: No lesions. Nose appeared normal. Throat: No exudate or erythema. NECK: Supple. No JVD, no carotid bruit. No lymphadenopathy or thyromegaly. LUNGS: Diminished breath sounds. Clear to auscultation. Percussion note normal. Chest symmetrical. HEART: S1, S2, no S3. Grade II/ murmur. No cyanosis or clubbing. No ascites. Pulses: Dorsalis pedis and posterior tibial pulses +1 to +2 both sides. ABDOMEN: Soft. Non-tender. Bowel sounds active. No CVA tenderness. No mass felt. EXTREMITIES: Trace edema. Full range of motion of all extremities, equal. NEUROLOGIC: No focal deficit. Cranial nerves II through XII are grossly intact. No headache, no double vision or headache. SKIN: Warm and dry. Significantly improved area of cellulitis with decreased firmness, erythema and swelling, pressing machine tender. Turgor-normal. LYMPHATIC: No palpable lymph nodes/no lymphedema. MUSCULOSKELETAL: Normal joints with no swelling. Muscle tone is normal. LAB REVIEW: 01/28/18 04:30 01/28/18 04:30 01/28/18 08:45: Vancomycin Trough 25.22 H* ASSESSMENT: 1. Less redness of the right axillary area with possibility of mild shoulder swelling. 2. Right axillary celllul;itis improving 3. Contact dermatitis upper chest 4. Hypertension 5. Elevated LVH PLAN: 1. Echocardiogram today 2. Benadryl this a.m. 3. Triamcinolone 0.1% b.i.d. to rash Plan and coordination of the patient's care discussed in the presence of Poultry Picking Machine Tender and nurse. CONDITION: Stable SCRIBED BY: KALA ROPER Race Board Attendant scribed while in presence of service performed by Dr. Heath/Monet Hays APRN on 01/29/18 ([id number])
[2018-01-29] MEDS: BENADRYL PO PRN (10:25)
[2018-01-29] MEDS: NORCO 7.5-325 PO SCH ×4 (10:25→21:41)
[2018-01-29] MEDS: SYMBICORT 80-4.5 MCG INHALER IH SCH ×2 (10:26→21:35)
[2018-01-29] MEDS: CYMBALTA PO SCH (10:27)
[2018-01-29] MEDS: FIBER PO SCH ×2 (10:27→21:36)
[2018-01-29] MEDS: PROSCAR PO SCH (10:27)
[2018-01-29] MEDS: UROXATRAL PO SCH (10:27)
[2018-01-29] MEDS: PLAVIX PO SCH (10:28)
[2018-01-29] MEDS: ZESTRIL PO SCH (10:28)
[2018-01-29] MEDS: ASPIRIN EC PO SCH (10:28)
[2018-01-29] MEDS: VITAMIN D PO SCH (10:28)
[2018-01-29] MEDS: K-DUR PO SCH (10:28)
[2018-01-29] MEDS: PYRIDOSTIGMINE BROMIDE 60 MG PO SCH ×4 (10:29→21:38)
[2018-01-29] MEDS: FERROUS SULFATE PO SCH (10:29)
[2018-01-29] MEDS: DECADRON 4 MG/ML SDV IM SCH (10:29)
[2018-01-29] MEDS: LOVENOX SUBCUT SCH (10:30)
[2018-01-29] MEDS: MYCOPHENOLATE MOFETIL 1500 MG PO SCH ×2 (10:30→21:37)
[2018-01-29] MEDS: KENALOG 0.1% TP SCH ×2 (10:48→21:36)
[2018-01-29] MEDS: MELATONIN 3 MG PO SCH (21:36)
[2018-01-29] MEDS: AMBIEN PO SCH (21:41)
[2018-01-29] MEDS: ATIVAN PO SCH (21:41)
[2018-01-29] MEDS: MYLANTA SUSP PO PRN (21:52)
[2018-01-29] MEDS: LIPITOR PO SCH (21:52)
[2018-01-29] MEDS: VANCOMYCIN 1 GM in SODIUM CHLORIDE 250 ML IV SCH (22:52)
[2018-01-30] MEDS: ANCEF 1 GM in SODIUM CHLORIDE 100 ML IV SCH (05:18)
[2018-01-30 05:21] VITALS: BP 141/87; TEMP 98
[2018-01-30] MEDS: CLEOCIN PO SCH ×2 (05:40→13:23)
[2018-01-30] MEDS: PROTONIX PO SCH (05:41)
[2018-01-30] MEDS ORDERED: LASIX TAB PO SCH (09:00)
[2018-01-30] MEDS ORDERED: BACTROBAN OINTMENT 1 GRAM APPLICATOR (ER) NS SCH (09:00)
[2018-01-30] MEDS: SYMBICORT 80-4.5 MCG INHALER IH SCH (09:06)
[2018-01-30] MEDS: ASPIRIN EC PO SCH (09:07)
[2018-01-30] MEDS: FERROUS SULFATE PO SCH (09:07)
[2018-01-30] MEDS: UROXATRAL PO SCH (09:07)
[2018-01-30] MEDS: PLAVIX PO SCH (09:07)
[2018-01-30] MEDS: CYMBALTA PO SCH (09:07)
[2018-01-30] MEDS: K-DUR PO SCH (09:07)
[2018-01-30] MEDS: PROSCAR PO SCH (09:07)
[2018-01-30] MEDS: VITAMIN D PO SCH (09:07)
[2018-01-30] MEDS: MYCOPHENOLATE MOFETIL 1500 MG PO SCH (09:08)
[2018-01-30] MEDS: ZESTRIL PO SCH (09:08)
[2018-01-30] MEDS: NORCO 7.5-325 PO SCH ×2 (09:08→13:24)
[2018-01-30] MEDS: FIBER PO SCH (09:08)
[2018-01-30] MEDS: PYRIDOSTIGMINE BROMIDE 60 MG PO SCH ×2 (09:09→13:24)
[2018-01-30] MEDS: DECADRON 4 MG/ML SDV IM SCH (09:12)
[2018-01-30] MEDS: LOVENOX SUBCUT SCH (09:19)
--- NOTE | 2018-01-30 10:17 | CM.DICTOOL ---
ADMISSION: 01/25/18 05:40 DISCHARGE: 01/30/18 DATE OF SERVICE: 01/30/18 FINAL DIAGNOSIS CELLULITIS RIGHT AXILLA, RIGHT AXILLA CONTACT DERMATITIS, UPPER CHEST GYENOCOMASTIA, BILATERAL CAD S/P ND, 2005 AND CARDIAC STENT APPLICATION CHF BY HISTORY AORTIC STENOSIS HYPERTENSION DYSLIPIDEMIA DM, TYPE 2 GERD HIATAL HERNIA OSTEOARTHRITIS MYASTHENIA GRAVIS DYSPHAGIA AND HISTORY OF ASPIRATION PNEUMONIA CHRONIC KIDNEY DISEASE ANEMIA ANXIETY APPY INGUNIAL HERNIA REPAIR LEFT SHOULDER ARTHROPLASTY PACER PLACEMENT LAST VITALS Temp Pulse Resp BP Pulse Ox 98 F 62 20 141/87 H 99 01/30/18 05:21 01/30/18 05:21 01/30/18 05:21 01/30/18 05:21 01/30/18 05:21 TAKE THESE MEDICATIONS AT THE CARE HOME Acetaminophen (Tylenol) 650 mg PO TID PRN PRN Reason: pain Acetaminophen (Extra Strength) 500 mg PO Q4H PRN Al Hydroxide/Mg Hydroxide (Mylanta Susp) 10 ml PO DIRECTED PRN PRN Reason: indigestion Last Admin: 01/29/18 21:52 Dose: 10 ml Alfuzosin HCl (Uroxatral) 10 mg PO DAILY [facility] Last Admin: 01/29/18 10:27 Dose: 10 mg Artificial Tears (Artificial Tears Opth [place]) 1 drop OP DIRECTED PRN PRN Reason: dry eyes Aspirin (Aspirin Ec) 81 mg PO DAILYWM [facility] Last Admin: 01/29/18 10:28 Dose: 81 mg Atorvastatin Calcium (Lipitor) 40 mg PO BEDTIME [facility] Last Admin: 01/29/18 21:52 Dose: 40 mg Bactroban to nares BID x 10 DAYS Budesonide/Formoterol Fumarate (Symbicort 80-4.5 Mcg Inhaler) 2 puff IH BID [facility] Last Admin: 01/29/18 21:35 Dose: 2 puff Cholecalciferol (Vitamin D3) 2,000 unit PO DAILY [facility] Last Admin: 01/29/18 10:28 Dose: 2,000 unit Clindamycin HCl (Cleocin) 300 mg PO Q8HR [facility] Last Admin: 01/30/18 05:40 Dose: 300 mg Clopidogrel Bisulfate (Plavix) 75 mg PO DAILY [facility] Last Admin: 01/29/18 10:28 Dose: 75 mg Diphenhydramine HCl (Benadryl) 25 mg PO Q8H PRN PRN Reason: itching Last Admin: 01/29/18 10:25 Dose: 25 mg Duloxetine HCl (Cymbalta) 60 mg PO DAILY [facility] Last Admin: 01/29/18 10:27 Dose: 60 mg Ferrous Sulfate (Ferrous Sulfate) 324 mg PO DAILY [facility] Last Admin: 01/29/18 10:29 Dose: 324 mg Fiber Tablet 2 tab PO BID [facility] Last Admin: 01/29/18 21:36 Dose: 2 tab Finasteride (Proscar) 5 mg PO DAILY [facility] Last Admin: 01/29/18 10:27 Dose: 5 mg Fleets Enema 1 application RC DIRECTED PRN Furosemide (Lasix Tab) 40 mg PO 0900 [facility] Guaifenesin (Robitussin Sugar-Free) 10 ml PO Q4HR PRN PRN Reason: Cough Hydrocodone Bitart/Acetaminophen ([place] 7.5-325) 1 tab PO QID [facility] Last Admin: 01/29/18 21:41 Dose: 1 tab Insulin Human Regular (Humulin R) 0 - 100 unit SUBCUT WEEKLY PRN; Protocol PRN Reason: hyperglycemia Last Admin: 01/26/18 17:12 Dose: 3 unit Lisinopril (Zestril) 10 mg PO DAILY [facility] Last Admin: 01/29/18 10:28 Dose: 10 mg Loperamide HCl (Imodium) 2 mg PO Q6H PRN PRN Reason: Diarrhea Last Admin: 01/29/18 21:52 Dose: 2 mg Lorazepam (Ativan) 0.5 mg PO BEDTIME [facility] Last Admin: 01/29/18 21:41 Dose: 0.5 mg Magnesium Hydroxide (Milk Of Magnesia) 30 ml PO ONCE PRN PRN Reason: Constipation Melatonin [Melatin] 3 mg PO BEDTIME [facility] Last Admin: 01/29/18 21:36 Dose: 3 mg Mupirocin (Bactroban Ointment 1 Gram Applicator (Er)) 1 gm NS BID [facility] Mycophenolate Mofetil [Cellcept] 1,500 mg PO BID [facility] Last Admin: 01/29/18 21:37 Dose: 1,500 mg Nitroglycerin (Nitrostat) 0.4 mg SL Q5MIN X 3 DOSES PRN PRN Reason: Chest Pain Pantoprazole Sodium (Protonix) 40 mg PO BIDAC [facility] Last Admin: 01/30/18 05:41 Dose: 40 mg Potassium Chloride (K-Dur) 20 meq PO DAILY [facility] Last Admin: 01/29/18 10:28 Dose: 20 meq Prednisone (Prednisone) 2.5 mg PO EVERY OTHER DAY SUMA (HOLD X5 DAYS) Last Admin: 01/25/18 12:00 Dose: 2.5 mg Prednisone 10 mg PO BID x5 DAYS Promethazine HCl (Phenergan Tab) 25 mg PO Q6H PRN PRN Reason: Nausea / Vomiting Propylene Glycol/Peg 400/Pf [Systane 0.3-0.4% Eye Drops] 1 each OP DIRECTED PRN PRN Reason: dry, itchy eyes Last Admin: 01/25/18 21:14 Dose: 1 each Pyridostigmine [place] [Mestinon] 60 mg PO QID [facility] Last Admin: 01/29/18 21:38 Dose: 60 mg Verapamil HCl (Calan Sr) 180 mg PO BEDTIME PRN PRN Reason: BP greater than 140/80 Vit C/E/Zn/Coppr/Lutein/Zeaxan [Preservision Areds 2 Softgel] 1 each PO BID [facility] Last Admin: 01/29/18 21:56 Dose: Not Given Zolpidem Tartrate (Ambien) 5 mg PO BEDTIME [facility] Last Admin: 01/29/18 21:41 Dose: 5 mg MEDICATION CHANGES DURING THIS STAY See New Prescriptions ALLERGIES tamsulosin HCl [From Flomax] Adverse Reaction (Verified 01/25/18 02:42) TAPE ADHESIVES Adverse Reaction (Uncoded 01/25/18 02:42) NEW PRESCRIPTIONS: HOLD YOUR SCHEDULED PREDNISONE UNTIL AFTER THE 5 DAY BID DOSE HAS BEEN COMPLETED , THEN RESUME THE 2.5 MG PO EVERY OTHER DAY DOSE CLINDAMYCIN 300 MG PO TID X 7 DAYS PREDNISONE 10 MG PO BID WITH FOOD X 5 DAYS BACTROBAN OINTMENT TO NARES BID X 10 DAYS SMOKING: NON SMOKER DISEASE SPECIFIC EDUCATION: CELLULITIS CONTACT DERMATITIS NEW MEDICATIONS CARE HOME MEDICATIONS FOLLOW UP LAB REVIEW: 01/30/18 04:30 01/30/18 04:30 01/30/18 04:30: Sodium 137, Potassium 3.7, Chloride 104, Carbon Dioxide 23, Anion Gap 13.7, BUN 37 H, Creatinine 1.25 H, Estimated GFR (MDRD) 56.00, BUN/ Creatinine Ratio 29.60, Glucose 98, Calcium 8.4, Total Bilirubin 0.2, AST 11 L, ALT < 6 L, Alkaline Phosphatase 46 L, Total Protein 5.3 L, Albumin 2.5 L, Globulin 2.8, Albumin/Globulin Ratio 0.89 01/30/18 04:30: WBC 14.23 H, RBC 3.10 L, Hgb 9.4 L, Hct 27.7 L, MCV 89.4, MCH 30.3, MCHC 33.9, RDW Coeff of Bola 14.6, Plt Count 267, Immature Gran % (Auto) 3.7, Neut % (Auto) 74.7, Lymph % (Auto) 11.1, [place] % (Auto) 9.8, Eos % (Auto) 0.4, Baso % (Auto) 0.3, Immature Gran # (Auto) 0.5, Neut # (Auto) 10.6 H, Lymph # (Auto) 1.6, [place] # (Auto) 1.4, Eos # (Auto) 0.1, Baso # (Auto) 0.0 PLAN: DISCHARGE BACK TO [facility] TODAY RESUME YOUR CARE HOME MEDICATIONS PER LIST PROVIDED BY THE NURSING STAFF HOLD YOUR SCHEDULED PREDNISONE UNTIL AFTER THE 5 DAY BID DOSE HAS BEEN COMPLETED , THEN RESUME ORDERED NEW MEDICATIONS CLINDAMYCIN 300 MG PO TID X 7 DAYS PREDNISONE 10 MG PO BID WITH FOOD X 5 DAYS BACTROBAN OINTMENT TO NARES BID X 10 DAYS LABS CBC WITH DIFF AND CMP IN ONE WEEK ACTIVITY MAY PARTICIPATE IN CARE HOME ACTIVITY PROGRAM TOLERATED PT/OT PLEASE 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 HE REQUIRES ASSISTANCE FOR ADL'S. HE CURRENTLY RESIDES AT [facility] AND DESIRES TO RETURN THERE AT DISCHARGE. THE SKIN IS INTERRUPTED WITH RAISED RED RASH TO THE UPPER TORSO, LIKELY CONTACT DERMATITIS. THE PATIENT DOES NOT COMPLAIN OF URTICARIA OR DISCOMFORT DUE TO THE RASH. HE HAS NO DECUBITUS ULCERS PRESENT ON DISCHARGE. THE AREA AT THE RIGHT AXILLA CONTINUES TO BE FIRM BUT HAS IMPROVED. REDNESS HAS RESOLVED. THERE IS NO EXCESSIVE WARMTH. SWELLING IS IMPROVED BUT STILL PRESENT. MR. FREED CONTINUES TO COMPLAIN OF PAIN WITH PALPATION OF THE AREA. PAIN SEVERITY /INTENSITY HAS ALSO IMPROVED. HYDRATION AND NUTRITIONAL STATUS ARE FAIR TO GOOD. THE PATIENT HAS SHOWN GOOD CLINICAL IMPROVEMENT SINCE ADMISSION. HE WILL BE DISCHARGED TODAY BACK TO [facility]. WE WILL FOLLOW HIM THERE IN ONE WEEK. MR. FREED IS AWARE AND AGREEABLE FOR DISCHARGE TODAY. CURRENT CODE STATUS FULL CODE ISABEL VERONICA APRN MARGARITA HEATH M.D.
--- NOTE | 2018-01-30 10:36 | PCM.PROG ---
Attending Provider: ATTENDING PROVIDER: Dr. MARGARITA HEATH This patient is seen with Monet Hays, Nurse Practitioner. DATE OF SERVICE: 01/30/18 SUBJECTIVE: This 77 year old WHITE/ M was hospitalized 01/25/18. Awake and alert lying in bed. States pain in right axillary. [facility] He has been eating well with no fever. REVIEW OF SYSTEMS: CONSTITUTIONAL: No night sweats. No fatigue, malaise, lethargy. No fever or chills. HEENT: Eyes: No visual changes. No eye pain. No eye discharge. ENT: No runny nose. No epistaxis. No sinus pain. No odynophagia. No congestion. RESPIRATORY: No cough, no congestion. No hemoptysis. No shortness of breath. CARDIOVASCULAR: No angina symptoms. No CHF symptoms. No atypical chest pain for CAD. No palpitations. No orthopnea.. GASTROINTESTINAL: No abdominal pain. No nausea or vomiting. No diarrhea or constipation. No hematemesis. No hematochezia. GENITOURINARY: No urgency. No frequency. No dysuria. No hematuria. No obstructive symptoms. No discharge. No pain. No significant abnormal bleeding. MUSCULOSKELETAL: No musculoskeletal pain; no joint swelling. NEUROLOGICAL: Awake, alert, oriented to time, place and person. No headache. No neck pain. No syncope. No seizures. No dizziness. PSYCHIATRIC: Not anxious. No depression. No suicidal thoughts. No homicidal thoughts. SKIN: No rash. No lesions. No wounds. Smaller area of redness with improved tenderness in axillary. Right axillary redness and swelling improved. ENDOCRINE: No unexplained weight loss. No weight gain. HEMATOLOGIC/LYMPHATIC: No anemia. No purpura. No petechiae. No prolonged or excessive bleeding. No palpable lymph nodes. PHYSICAL EXAMINATION: GENERAL: The patient is awake, alert and oriented, lying/sitting in bed in no distress. VITAL SIGNS: Temperature 98 F, Pulse 62, Respiratory Rate 20, BP 141/87, Pulse Ox 99% HEENT: Head normocephalic, atraumatic. Eyes: Extraocular muscles are intact. Pupils are equal, round and reactive to light and accommodation. Ears: No lesions. Nose appeared normal. Throat: No exudate or erythema. NECK: Supple. No JVD, no carotid bruit. No lymphadenopathy or thyromegaly. LUNGS: Clear to auscultation. Percussion note normal. Chest symmetrical. HEART: S1, S2, no S3. Grade II/ murmurs. No cyanosis or clubbing. No ascites. Pulses: Dorsalis pedis and posterior tibial pulses +1 to +2 both sides. ABDOMEN: Soft. Non-tender. Bowel sounds active. No CVA tenderness. No mass felt. EXTREMITIES: No edema. Full range of motion of all extremities, equal. NEUROLOGIC: No focal deficit. Cranial nerves II through XII are grossly intact. No headache, no double vision or headache. SKIN: Not dry. Intact. Turgor-normal. LYMPHATIC: No palpable lymph nodes/no lymphedema. MUSCULOSKELETAL: Normal joints with no swelling. Muscle tone is normal. LAB REVIEW: 01/30/18 04:30 01/30/18 04:30 01/30/18 04:30: Sodium 137, Potassium 3.7, Chloride 104, Carbon Dioxide 23, Anion Gap 13.7, BUN 37 H, Creatinine 1.25 H, Estimated GFR (MDRD) 56.00, BUN/ Creatinine Ratio 29.60, Glucose 98, Calcium 8.4, Total Bilirubin 0.2, AST 11 L, ALT < 6 L, Alkaline Phosphatase 46 L, Total Protein 5.3 L, Albumin 2.5 L, Globulin 2.8, Albumin/Globulin Ratio 0.89 01/30/18 04:30: WBC 14.23 H, RBC 3.10 L, Hgb 9.4 L, Hct 27.7 L, MCV 89.4, MCH 30.3, MCHC 33.9, RDW Coeff of Bola 14.6, Plt Count 267, Immature Gran % (Auto) 3.7, Neut % (Auto) 74.7, Lymph % (Auto) 11.1, [place] % (Auto) 9.8, Eos % (Auto) 0.4, Baso % (Auto) 0.3, Immature Gran # (Auto) 0.5, Neut # (Auto) 10.6 H, Lymph # (Auto) 1.6, [place] # (Auto) 1.4, Eos # (Auto) 0.1, Baso # (Auto) 0.0 ASSESSMENT: Please see below. 1. Right axillary cellulitis 2. Hypertension 3. Chronic kidney disease 4. Culture MRSA positive. PLAN: 1. Clindamycin 300mg three times a day 2. Prednisone 10mg twice a day for 5 days 3. Bactroban to nose 4. Echo today Plan and coordination of the patient's care discussed in the presence of State Editor and nurse. SCRIBED BY: Christopher COELHO scribed while in presence of service performed by Dr. Heath/Monet Hays APRN on 01/30/18 ([id number])
[2018-01-30] MEDS: KENALOG 0.1% TP SCH (13:24)
[2018-01-30] MEDS: BENADRYL PO PRN (13:28)
--- NOTE | 2018-02-02 09:11 | ECHO2D ---
Date of Exam: 01/30/18 Ordering Physician: DR. MARGARITA HEATH Room #: 120 Reason for Echo: ARM PAIN, SOB, CABG M-Mode Normal Adult Results LV Dimensions Normal Adult Results AoV Opening excursions >1.6 >1.6 LVEDD-base- 3.5-5.8 4.0 Ao root dimensions 2.0-3.7 3.5 LVESD-base- 3.1-4.6 L. Atrium dimensions 1.9-3.8 6.1 Post. Wall thickness 0.8-1.1 1.0 IV septum (thickness) 0.7-1.2 0.9 Post. Wall excursion 0.72-1.3 NORMAL Septal motion NORMAL Systolic motion R. Ventricular cavity 1.5-2.0 NORMAL LVEF 60% 56% Paradoxical septal wall motion NORMAL 2-D : DIFFICULT STUDY--MARKEDLY ENLARGED LEFT ATRIAL CAVITY, NORMAL LEFT VENTRICLE CAVITY, NORMAL VALVES, NO EFFUSION, NO THROMBUS M-MODE: MV: NORMAL AV: NORMAL TV: NORMAL PV: CHAMBER SIZE: ENLARGED LEFT ATRIAL CAVITY WALL MOTION: NORMAL PERICARDIUM: NORMAL INTERPRETATION: 1. NORMAL LEFT VENTRICULAR CONTRACTILITY 2. NORMAL VALVES 3. MARKEDLY ENLARGED LEFT ATRIAL CAVITY MTDD
--- NOTE | 2018-02-02 13:26 | HP ---
DATE OF SERVICE: 01/26/18 (ADMITTED 01/25/18) HISTORY OF PRESENT ILLNESS: This is a 77-year-old white male who is a resident of [facility]. He presents to the emergency room complaining of weakness, not feeling well. He states that he has a reddened area under his right arm and he is running a bit of a low grade fever. PAST MEDICAL HISTORY: Hypertension Dyslipidemia Anemia BPH Myasthenia Gravis Anxiety Insomnia Pacemaker Diabetes mellitus Type 2 Depression Osteoarthritis Coronary artery disease Chronic kidney disease PAST SURGICAL HISTORY: Pacemaker [address] Kathleen Stent placement 2004 SD 2004 Status post hernia repair Status post appendectomy Status post left rotator cuff repair Latest colonoscopy 2009 Past stress test January [address] Kathleen REVIEW OF SYSTEMS: CONSTITUTIONAL: Positive for low grade fever, fatigue, malaiase. No night sweats. No lethargy. No chills. HEENT: Eyes: No visual changes. No eye pain. No eye discharge. ENT: No runny nose. No epistaxis. No sinus pain. No sore throat. No odynophagia. No ear pain. No congestion. RESPIRATORY: No cough, no congestion. No hemoptysis. No shortness of breath. CARDIOVASCULAR: No angina symptoms. No CHF symptoms. No atypical chest pain for CAD. No palpitations. No PND. No orthopnea. GASTROINTESTINAL: No abdominal pain. No nausea or vomiting. No diarrhea or constipation. No hematemesis. No hematochezia. GENITOURINARY: No urgency. No frequency. No dysuria. No hematuria. No obstructive symptoms. No discharge. No pain. No significant abnormal bleeding. MUSCULOSKELETAL: No musculoskeletal pain. No joint swelling. No arthritis. NEUROLOGICAL: No headache. No neck pain. No syncope. No seizures. No dizziness. PSYCHIATRIC: Not anxious. No depression. No suicidal thoughts. No homicidal thoughts. SKIN: Reddened area in right axilla. ENDOCRINE: No unexplained weight loss. No weight gain. HEMATOLOGIC/LYMPHATIC: No anemia. No purpura. No petechiae. No prolonged or excessive bleeding. No palpable lymph nodes. PERSONAL/FAMILY/SOCIAL HISTORY: The patient is . He currently resides at [facility]. He is a former smoker. He quit greater than 20 years ago. Denies any alcohol or ilicit drug use. He does ambulate by way of a walker, mostly uses a wheelchair. MEDICATIONS: (HOME) Aspirin 81 mg p.o. daily with meal Mylanta suspension 10 mL p.o. as directed p.r.n. Mestinon 60 mg p.o. q.i.d. Ferrous Sulfate 325 mg p.o. daily Verapamil 180 mg p.o. bedtime p.r.n. Acetaminophen 650 mg p.o. t.i.d. p.r.n. Lisinopril 10 mg p.o. daily Loperamide 2 mg p.o. q.6h p.r.n. Plavix 75 mg p.o. daily Prednisone 2.5 mg p.o. every other day Budesonide/Formoterol two puff IH b.i.d. Artificial Tears one drop each eye as directed p.r.n. Cellcept 1,500 mg p.o. b.i.d. Cholecalciferol 2,000 unit p.o. daily Uroxatral 10 mg p.o. daily Proscar 5 mg p.o. daily Potassium Chloride 20 mEq p.o. daily Nitrostat 0.4 mg SL q.5 min times three doses p.r.n. Melatonin 3 mg p.o. bedtime Lasix 40 mg p.o. daily Guaifenesin 200 mg p.o. q.4h p.r.n. Cymbalta 60 mg p.o. daily Ativan 0.5 mg p.o. bedtime Ambien 5 mg p.o. bedtime PreserVision Areds 2 Softgel one each p.o.b.i.d. Fiber tablet two tab p.o. b.i.d. Tylenol Extra-Strength 500 mg p.o.q.4h p.r.n. Propylene Glycol/Peg 400/Pf one each OP as directed p.r.n. Promethazine 25 mg p.o. q.6h p.r.n. Fleets enema one application RC as directed p.r.n. Benadryl 25 mg p.o. q.8h p.r.n. [place] 7.5-325 one tab p.o. q.i.d. Protonix 40 mg p.o. b.i.d. a.c. Atorvastatin 40 mg p.o. bedtime Novolin R one unit SQ weekly p.r.n. ALLERGIES: FLOMAX, TAPE ADHESIVES PHYSICAL EXAMINATION: VITAL SIGNS: Temperature 100.7, heart rate 100, respirations 24, BP 106/73, pulse ox 99%. HEENT: Head normocephalic, atraumatic. Eyes: Extraocular muscles are intact. Pupils are equal, round and reactive to light and accommodation. Ears: No lesions. Nose appeared normal. Throat: No exudate or erythema. NECK: Supple. No JVD, no carotid bruit. No lymphadenopathy or thyromegaly. LUNGS: Diminished breath sounds bilaterally. Clear to auscultation. Percussion note normal. Chest symmetrical. HEART: S1, S2, no S3. Grade II/ systolic murmur. No cyanosis or clubbing. No ascites. Pulses: Dorsalis pedis and posterior tibial pulses +1 to +2 bilaterally. ABDOMEN: Soft. Nontender. Bowel sounds active. No CVA tenderness. No mass felt. EXTREMITIES: Trace edema lower extremities. Full range of motion of all extremities, equal. NEUROLOGIC: Alert and oriented times three. No focal deficit. Cranial nerves II through XII are grossly intact. No headache, no double vision or headache. SKIN: 6" area of erythema in right axilla which is tender. No area of induration felt, no drainage. LYMPHATIC: No palpable lymph nodes/no lymphedema. MUSCULOSKELETAL: Normal joints with no swelling. Muscle tone is normal. CT of the chest shows fat stranding of the right axilla, enlarged right shoulder joint with effusion. Sodium 135, potassium 3.8, BUN 17, creatinine 1.1 , glucose 122, GFR 65, bili 1.2, AST 9, ALT 7, total protein 6.2, albumin 3.2. Sed rate 34. Urine shows 1+ protein, trace blood, trace bacteria. White count 22.47, hemoglobin 10.1, hematocrit 29.4, platelets 192. ASSESSMENT: 1. CELLULITIS, RIGHT AXILLA WITH QUESTIONABLE MASS 2. ANEMIA 3. CHRONIC KIDNEY DISEASE 4. DIABETES MELLITUS TYPE 2 5. PACEMAKER 6. CORONARY ARTERY DISEASE 7. HYPERTENSION 8. MYASTHENIA GRAVIS 9. COPD 10. BPH 11. CHRONIC LEG EDEMA 12. ANXIETY 13. DEPRESSION 14. INSOMNIA 15. OSTEOARTHRITIS 16. GERD PLAN: 1. Admit to the floor 2. Routine telemetry orders 3. CBC, CMP daily 4. Diabetic diet 5. Fluids; NS at 75 cc/hr 6. Clindamycin 300 mg p.o. t.i.d. 7. Cefazolin IV 1 gm q.8hr 8. Vancomycin 750 mg IV q.12hr 9. Sliding scale for insulin 10. Continue all home medications 11. Will do an ultrasound of the right axilla 12. Tylenol as needed for fever 13. Chest x-ray 14. Will follow closely TIME SPENT: More than 70 minutes. MTDD
--- NOTE | 2018-02-04 11:16 | PN ---
DATE OF SERVICE: 01/27/18 SUBJECTIVE: This 77-year-old white male hospitalized with cellulitis, which seems to be improving. The patient has pain much less. He is awaiting echo. The patient was seen and examined with the nurse practitioner. CONDITION: Improving, stable. TIME SPENT: More than 30 minutes. Plan and coordination of the patient's care discussed in the presence of nurse. LIBORIO
--- NOTE | 2018-02-04 13:59 | DS ---
DATE OF SERVICE: 01/30/18 FINAL DIAGNOSIS: CELLULITIS RIGHT AXILLA, RIGHT AXILLA CONTACT DERMATITIS, UPPER CHEST GYNECOMASTIA, BILATERAL CAD S/P [place], 2005 AND CARDIAC STENT APPLICATION CHF BY HISTORY AORTIC STENOSIS HYPERTENSION DYSLIPIDEMIA DM, TYPE 2 GERD HIATAL HERNIA OSTEOARTHRITIS MYASTHENIA GRAVIS DYSPHAGIA AND HISTORY OF ASPIRATION PNEUMONIA CHRONIC KIDNEY DISEASE ANEMIA ANXIETY APPY INGUINAL HERNIA REPAIR LEFT SHOULDER ARTHROPLASTY PACER PLACEMENT DISCHARGE INSTRUCTIONS: DR. HEATH/ISABEL VERONICA APRN WILL FOLLOW THE PATIENT UP AT THE LONG TERM ON ROUNDS DISCHARGE BACK [facility] TODAY LABS - CBC WITH DIFF AND CMP IN ONE WEEK VITAL SIGNS DAILY TAKE THESE MEDICATIONS AT THE LONG TERM: Acetaminophen (Tylenol) 650 mg PO TID PRN PRN Reason: pain Acetaminophen (Extra Strength) 500 mg PO Q4H PRN Al Hydroxide/Mg Hydroxide (Mylanta Susp) 10 ml PO DIRECTED PRN PRN Reason: indigestion Last Admin: 01/29/18 21:52 Dose: 10 ml Alfuzosin HCl (Uroxatral) 10 mg PO DAILY [facility] Last Admin: 01/29/18 10:27 Dose: 10 mg Artificial Tears (Artificial Tears Opth Raine) 1 drop OP DIRECTED PRN PRN Reason: dry eyes Aspirin (Aspirin Ec) 81 mg PO DAILYWM [facility] Last Admin: 01/29/18 10:28 Dose: 81 mg Atorvastatin Calcium (Lipitor) 40 mg PO BEDTIME [facility] Last Admin: 01/29/18 21:52 Dose: 40 mg Bactroban to nares BID x 10 DAYS Budesonide/Formoterol Fumarate (Symbicort 80-4.5 Mcg Inhaler) 2 puff IH BID [facility] Last Admin: 01/29/18 21:35 Dose: 2 puff Cholecalciferol (Vitamin D3) 2,000 unit PO DAILY [facility] Last Admin: 01/29/18 10:28 Dose: 2,000 unit Clindamycin HCl (Cleocin) 300 mg PO Q8HR [facility] Last Admin: 01/30/18 05:40 Dose: 300 mg Clopidogrel Bisulfate (Plavix) 75 mg PO DAILY [facility] Last Admin: 01/29/18 10:28 Dose: 75 mg Diphenhydramine HCl (Benadryl) 25 mg PO Q8H PRN PRN Reason: itching Last Admin: 01/29/18 10:25 Dose: 25 mg Duloxetine HCl (Cymbalta) 60 mg PO DAILY [facility] Last Admin: 01/29/18 10:27 Dose: 60 mg Ferrous Sulfate (Ferrous Sulfate) 324 mg PO DAILY [facility] Last Admin: 01/29/18 10:29 Dose: 324 mg Fiber Tablet 2 tab PO BID [facility] Last Admin: 01/29/18 21:36 Dose: 2 tab Finasteride (Proscar) 5 mg PO DAILY [facility] Last Admin: 01/29/18 10:27 Dose: 5 mg Fleets Enema 1 application RC DIRECTED PRN Furosemide (Lasix Tab) 40 mg PO 0900 [facility] Guaifenesin (Robitussin Sugar-Free) 10 ml PO Q4HR PRN PRN Reason: Cough Hydrocodone Bitart/Acetaminophen ([place] 7.5-325) 1 tab PO QID [facility] Last Admin: 01/29/18 21:41 Dose: 1 tab Insulin Human Regular (Humulin R) 0 - 100 unit SUBCUT WEEKLY PRN; Protocol PRN Reason: hyperglycemia Last Admin: 01/26/18 17:12 Dose: 3 unit Lisinopril (Zestril) 10 mg PO DAILY [facility] Last Admin: 01/29/18 10:28 Dose: 10 mg Loperamide HCl (Imodium) 2 mg PO Q6H PRN PRN Reason: Diarrhea Last Admin: 01/29/18 21:52 Dose: 2 mg Lorazepam (Ativan) 0.5 mg PO BEDTIME [facility] Last Admin: 01/29/18 21:41 Dose: 0.5 mg Magnesium Hydroxide (Milk Of Magnesia) 30 ml PO ONCE PRN PRN Reason: Constipation Melatonin 3 mg PO BEDTIME [facility] Last Admin: 01/29/18 21:36 Dose: 3 mg Mupirocin (Bactroban Ointment 1 Gram Applicator (Er)) 1 gm NS BID [facility] Mycophenolate Mofetil 1,500 mg PO BID [facility] Last Admin: 01/29/18 21:37 Dose: 1,500 mg Nitroglycerin (Nitrostat) 0.4 mg SL Q5MIN X 3 DOSES PRN PRN Reason: Chest Pain [facility]opraz[facility] Last Admin: 01/30/18 05:41 Dose: 40 mg Potassium Chloride (K-Dur) 20 meq PO DAILY [facility] Last Admin: 01/29/18 10:28 Dose: 20 meq Prednisone (Prednisone) 2.5 mg PO EVERY OTHER DAY SUMA (HOLD X5 DAYS) Last Admin: 01/25/18 12:00 Dose: 2.5 mg Prednisone 10 mg PO BID x5 DAYS Promethazine HCl (Phenergan Tab) 25 mg PO Q6H PRN PRN Reason: Nausea / Vomiting Propylene Glycol/Peg 400/Pf 1 each OP DIRECTED PRN PRN Reason: dry, itchy eyes Last Admin: 01/25/18 21:14 Dose: 1 each Pyridostigmine [place] 60 mg PO QID [facility] Last Admin: 01/29/18 21:38 Dose: 60 mg Verapamil HCl (Calan Sr) 180 mg PO BEDTIME PRN PRN Reason: BP greater than 140/80 Vit C/E/Zn/Coppr/Lutein/Zeaxan 1 each PO BID [facility] Last Admin: 01/29/18 21:56 Dose: Not Given Zolpidem Tartrate (Ambien) 5 mg PO BEDTIME [facility] Last Admin: 01/29/18 21:41 Dose: 5 mg NEW PRESCRIPTIONS: HOLD YOUR SCHEDULED PREDNISONE UNTIL AFTER THE 5 DAY BID DOSE HAS BEEN COMPLETED , THEN RESUME THE 2.5 MG PO EVERY OTHER DAY DOSE CLINDAMYCIN 300 MG PO TID X 7 DAYS PREDNISONE 10 MG PO BID WITH FOOD X 5 DAYS BACTROBAN OINTMENT TO NARES BID X 10 DAYS DIET INSTRUCTIONS: REGULAR VARNISH DIPPER PLEASE CONSULT TO PROVIDE FOR OPTIMAL AND SAFE NUTRITIONAL NEEDS ACTIVITY: MAY PARTICIPATE IN LONG TERM ACTIVITY PROGRAM TOLERATED PT/OT PLEASE EVALUATE AND TREAT INDICATED SMOKING: NONSMOKER DISEASE SPECIFIC EDUCATION: Medications Activity Diet Followup labs HOSPITAL COURSE: This is a 77-year-old white male who is a resident of [facility] who presented to the emergency room with pain, redness and swelling in the right axilla and right shoulder pain. Chest CT revealed soft tissue cellulitis of the right axilla with a small reactive node. No mass. Ultrasound was done of the right axilla which also showed no signs of abscess just soft tissue, edema and inflammation. He was started on Vancomycin as well as Ancef IV and then was also started on Clindamycin 300 mg p.o. t.i.d. Over the course of the past several days, his condition has slowly improved. On the day following admission, the redness had extended somewhat and that is when the Clindamycin was started. He did have a low grade fever the first two days of admission and this has subsequently resolved. Today, on day of discharge, the swelling has improved, the erythema has almost resolved. It is still mildly tender but much improved. There was firmness initially. This is also improved. The patient does have a cardiac history with an [place] in 2005 and a stent placed as well as history of aortic stenosis. Dr. Heath performed an echo today prior to discharge. He has a pacemaker which was checked in December of 2017 by the [facility]. For the past 48 hours he has been eating 75% of his meals. He has been able to be up and about. He did receive 4 mg of Decadron IM for 3 days to aid with inflammation. Today on day of discharge, he states the pain has significantly improved. We did do a CT scan specifically of the right shoulder due to the pain and area of redness. This did show a small joint effusion, was otherwise inconclusive. His medications have remained unchanged while he was here with the exception of the antibiotics. Today, on day of discharge, temperature 98, heart rate 62, respirations 20, blood pressure 141/87 , pulse ox 99% on room air. The screening for MRSA was positive in the nares so we will send him back with Bactroban nasal ointment to be applied twice daily for the next 10 days. We will also [facility] him [facility] to the [facility] with Clindamycin 300 mg p.o. t.i.d. for the next 7 days as well as Prednisone 10 mg b.i.d. for the next five days. He is to do cool compresses as needed. He has [place] as a regular pain medicine which he can take. If he starts to run a fever they have been instructed to return him to the hospital. I do believe that this area is significantly improved and will continue to do so with administration of p.o. Clindamycin. The patient is of sound mind and states he is ready to go back to the [facility] as again his pain has significantly improved. He is able to move his right arm. Will discharge him back in stable condition and I will followup with him at [facility]. TIME SPENT: More than 60 minutes. LIBORIO
== END 2018-01-30 14:20 | DRG 603 ==
LOC: ED 02:35 → MEDSURG B 05:40
PROVIDERS: ADMIT Internal Medicine; ATTEND Internal Medicine
DX: L03.111 Cellulitis of right axilla (principal); R22.2 Localized swelling, mass and lump, trunk; R50.9 Fever, unspecified; M25.411 Effusion, right shoulder; I51.7 Cardiomegaly; L25.9 Unspecified contact dermatitis, unspecified cause; I12.9 Hypertensive chronic kidney disease with stage 1 through stage 4 chronic kidney disease, or unspecified chronic kidney disease; E11.22 Type 2 diabetes mellitus with diabetic chronic kidney disease; N18.9 Chronic kidney disease, unspecified; I35.0 Nonrheumatic aortic (valve) stenosis; I50.9 Heart failure, unspecified; I25.10 Atherosclerotic heart disease of native coronary artery without angina pectoris; I10 Essential (primary) hypertension; G70.00 Myasthenia gravis without (acute) exacerbation; R13.10 Dysphagia, unspecified; D64.9 Anemia, unspecified; R53.1 Weakness; F41.9 Anxiety disorder, unspecified; E78.5 Hyperlipidemia, unspecified; K21.9 Gastro-esophageal reflux disease without esophagitis; K44.9 Diaphragmatic hernia without obstruction or gangrene; M19.90 Unspecified osteoarthritis, unspecified site; I25.2 Old myocardial infarction; Z22.322 Carrier or suspected carrier of Methicillin resistant Staphylococcus aureus; Z79.4 Long term (current) use of insulin; Z79.899 Other long term (current) drug therapy; Z87.01 Personal history of pneumonia (recurrent); Z95.5 Presence of coronary angioplasty implant and graft; Z79.02 Long term (current) use of antithrombotics/antiplatelets; Z95.0 Presence of cardiac pacemaker; Z87.891 Personal history of nicotine dependence
CPT/HCPCS: 36415; 76882; 80053; 80202; 81001; 82962; 85025; 85651; 87040; 87081; 93005; 93010; 96372; 99284

== ENCOUNTER 2019-03-12 12:41 | Outpatient (CLI) ==
[2019-03-12 19:38] VITALS: BMI 24.8
== END 2019-03-12 12:48 | disposition critical access hospital (66) ==
LOC: AMBL 12:41
PROVIDERS: ATTEND Internal Medicine
DX: I95.9 Hypotension, unspecified (principal); R41.0 Disorientation, unspecified; R19.7 Diarrhea, unspecified; R53.1 Weakness

== ENCOUNTER 2019-03-26 17:12 | Emergency (ER) ==
[2019-03-26 17:16] VITALS: BP 107/76; TEMP 98; BMI 26.2
[2019-03-26] MEDS ORDERED: SODIUM CHLORIDE 1,000 ML IV STA (18:23)
--- NOTE | 2019-03-26 18:37 | ED.PDOC ---
General <MACYDORETHA - Last Filed: 03/26/19 19:54> Stated Complaint: pt is weak nauseated has some abdominal discmofort and is reported to several bouts of black tarry stools Time Seen by Physician: 17:33 Mode of Arrival: Walk-In Information Source: Patient Exam Limitations: No limitations Nursing and Triage Documentation Reviewed and Agree: Yes Does patient meet sepsis criteria?: No System Inflammatory Response Syndrome: Not Applicable <JAMISON LEA - Last Filed: 03/31/19 18:51> ED Provider: Dr. JAMISON LEA Chief Complaint: Nausea/Vomiting Primary Care Provider: MARGARITA HEATH Sepsis Protocol: For patient's 13 years and over: Temp is 96.8 and below OR 101 and greater Pulse >90 BPM Resp >20/minute Acutely Altered Mental Status Are patient's symptoms suggestive of a new infection, such as: -Pneumonia -Skin, Soft Tissue -Endocarditis -UTI -Bone, Joint Infection -Implantable Device -Acute Abdominal Infection -Wound Infection -Meningitis -Blood Stream Catheter Infection -Unknown GI Complaint Exam - GI Bleed Complaint/Exam Patient Complains of: Reports: Rectal bleeding, Black stools. Denies: Vomiting blood Onset/Duration: today at residential Symptoms Are: Resolved Frequency: 2 Severity: Reports: Blood-streaked stool, Black tarry stool. Denies: Hematemesis Location of Pain: Reports: Diffuse (mild 2/10) Character: Reports: Dull Aggravating: Reports: None Alleviating: Reports: None Associated Signs and Symptoms: Reports: Weakness, Nausea. Denies: Back Pain, Pallor, Dizziness, Syncope, Constipation, Rectal pain, Bruising, Weight loss, Recent abnormal coags GI Bleed Risk Factors: Reports: Plavix use. Denies: Coumadin use, Pradaxa use Recent Colonoscopy: No Recent EGD: No Related Surgical History: Reports: None Abdominal Findings: Present: None Rectal Exam: Present: Other (blood mixed with dark stool) Differential Diagnoses: Adverse Drug Effect, Cancer, Diverticulitis, Gastritis, Ischemic Bowel <JAMISON LEA - Last Filed: 03/31/19 18:51> Review of Systems - Review Of Systems Constitutional: Reports: Malaise, Weakness Eyes: Reports: No symptoms Ears, Nose, Mouth, Throat: Reports: No symptoms Respiratory: Reports: No symptoms Cardiac: Reports: No symptoms GI: Reports: Blood streaked bowels, Poor appetite, Rectal bleeding : Reports: No symptoms Musculoskeletal: Reports: No symptoms Skin: Reports: No symptoms Neurological: Reports: No symptoms Endocrine: Reports: No symptoms Hematologic/Lymphatic: Reports: No symptoms All Other Systems: Reviewed and Negative <BRENDAJAMISON POTTER Last Filed: 03/31/19 18:51> Past Medical History - Past Medical History Previously Healthy: No Endocrine: Reports: Other Cardiovascular: Reports: Other Respiratory: Reports: Other Hematological: Reports: Other Gastrointestinal: Reports: Other Genitourinary: Reports: Other Neuro/Psych: Reports: Other Musculoskeletal: Reports: Back Pain (chronic and shingles), Joint Pain (both shoulders) Cancer: Reports: Other Other Pertinent Past Medical History: MYASTHENIA;htn mi depr anx - Surgical History General Surgical History: Reports: CABG (left shoulder), Unknown - Family History Family History: Reports: Unknown - Social History Smoking Status: Former smoker Hx Substance Use: No Alcohol Screening: None - Immunizations Tetanus Shot up to Date: No <BRENDAJAMISON POTTER Last Filed: 03/31/19 18:51> Physical Exam - Physical Exam Appearance: Ill-appearing Ill-appearing: Moderate Pain Distress: Mild Eyes: VIK, EOMI, Conjunctiva clear ENT: Dry mucosa Neck: Supple Respiratory: Airway patent, Breath sounds clear, Breath sounds equal, Rhonchi Cardiovascular: Irregular rhythm GI/: Soft (retla black and bloody stool mostly tarry), Nontender, No masses, Bowel sounds normal, No Organomegaly Musculoskeletal: Normal strength, ROM intact, No edema, No calf tenderness Skin: Warm, Dry, Normal color Neurological: Sensation intact, Motor intact, Reflexes intact, Cranial nerves intact, Alert, Oriented Psychiatric: Affect appropriate, Mood appropriate <LEONORAJAMISON Ramirez Last Filed: 03/31/19 18:51> Interpretation - Color 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 Rhythm: Other (atrial fubmarked antrosetal t inversion and [address] depression) - EKG Interpretation Rhythm: Other (afib) Ectopy: None [place]: NL ST Segment: Other (atroseptal ischemia) <LEONORAJAMISON Ramirez Last Filed: 03/31/19 18:51> Physician Notification - Case Discussed Physician Notified: florinda Time of Notification: 19:00 <LEONORAJAMISON Last Filed: 03/31/19 18:51> Critical Care Note - Critical Care Note Total Time (mins): 0 <BRENDATARIQJAMISON - Last Filed: 03/31/19 18:51> Course - Course Hematology/Chemistry: 03/26/19 18:30 03/26/19 18:30 <DORETHA CAVAZOS - Last Filed: 03/26/19 19:54> - Course Hematology/Chemistry: 03/26/19 18:30 03/26/19 18:30 <JAMISON LEA - Last Filed: 03/31/19 18:51> - Course Orders, Labs, Meds: Lab Review 03/26/19 03/26/19 03/26/19 18:22 18:25 18:30 WBC 6.74 RBC 2.53 L Hgb 7.6 L Hct 23.9 L MCV 94.5 H MCH 30.0 MCHC 31.8 RDW Coeff of Bola 15.9 H Plt Count 265 Immature Gran % (Auto) 1.2 Neut % (Auto) 64.8 Lymph % (Auto) 15.1 [place] % (Auto) 18.2 H Eos % (Auto) 0.4 Baso % (Auto) 0.3 Immature Gran # (Auto) 0.1 Neut # (Auto) 4.4 Lymph # (Auto) 1.0 [place] # (Auto) 1.2 Eos # (Auto) 0.0 Baso # (Auto) 0.0 PT INR APTT D-Dimer (Manual) Puncture Site Rrad O2 Saturation 97.0 ABG pH 7.399 ABG pCO2 31.9 L ABG pO2 90.0 ABG HCO3 19.7 L ABG Total CO2 21 L ABG Base Excess -5 L Joce Test + FiO2 % 21.0 Sodium Potassium Chloride Carbon Dioxide Anion Gap BUN Creatinine Estimated GFR (MDRD) BUN/Creatinine Ratio Glucose Calcium Total Bilirubin AST ALT Alkaline Phosphatase Total Creatine Kinase Troponin I Total Protein Albumin Globulin Albumin/Globulin Ratio Amylase Lipase Procalcitonin Stl Occult Blood (IFOB) Positive Stool Occult Blood #2 Positive Stool Occult Blood #3 No specimen received 03/26/19 03/26/19 03/26/19 18:30 18:30 18:30 WBC RBC Hgb Hct MCV MCH MCHC RDW Coeff of Bola Plt Count Immature Gran % (Auto) Neut % (Auto) Lymph % (Auto) [place] % (Auto) Eos % (Auto) Baso % (Auto) Immature Gran # (Auto) Neut # (Auto) Lymph # (Auto) [place] # (Auto) Eos # (Auto) Baso # (Auto) PT 11.0 INR 1.10 APTT 26.8 D-Dimer (Manual) Puncture Site O2 Saturation ABG pH ABG pCO2 ABG pO2 ABG HCO3 ABG Total CO2 ABG Base Excess Joce Test FiO2 % Sodium 132.4 L Potassium 4.15 Chloride 104.9 Carbon Dioxide 23.0 Anion Gap 8.65 BUN 19.9 Creatinine 0.89 Estimated GFR (MDRD) 82.00 BUN/Creatinine Ratio 22.35 Glucose 105.0 Calcium 8.31 L Total Bilirubin 0.38 AST 13.5 L ALT 8.2 Alkaline Phosphatase 52.1 L Total Creatine Kinase < 20.0 L Troponin I 0.076 Total Protein 4.94 L Albumin 2.80 L Globulin 2.14 Albumin/Globulin Ratio 1.30 Amylase Lipase Procalcitonin 0.07 Stl Occult Blood (IFOB) Stool Occult Blood #2 Stool Occult Blood #3 03/26/19 03/26/19 18:30 18:37 WBC RBC Hgb Hct MCV MCH MCHC RDW Coeff of Bola Plt Count Immature Gran % (Auto) Neut % (Auto) Lymph % (Auto) [place] % (Auto) Eos % (Auto) Baso % (Auto) Immature Gran # (Auto) Neut # (Auto) Lymph # (Auto) [place] # (Auto) Eos # (Auto) Baso # (Auto) PT INR APTT D-Dimer (Manual) 970.76 Puncture Site O2 Saturation ABG pH ABG pCO2 ABG pO2 ABG HCO3 ABG Total CO2 ABG Base Excess Joce Test FiO2 % Sodium Potassium Chloride Carbon Dioxide Anion Gap BUN Creatinine Estimated GFR (MDRD) BUN/Creatinine Ratio Glucose Calcium Total Bilirubin AST ALT Alkaline Phosphatase Total Creatine Kinase Troponin I Total Protein Albumin Globulin Albumin/Globulin Ratio Amylase 64.6 Lipase 97.7 Procalcitonin Stl Occult Blood (IFOB) Stool Occult Blood #2 Stool Occult Blood #3 Orders Category Date Time Status ABG DRAW REQUEST Stat CARDIO 03/26/19 18:22 Completed EKG-(ED ONLY) Stat CARDIO 03/26/19 18:21 Completed ED IV/MEDIPORT/POWERPORT .ONCE EMERGENCY 03/26/19 18:21 Active ABG Stat LAB 03/26/19 18:22 Completed AMYLASE Stat LAB 03/26/19 18:37 Completed CBC W/ AUTO DIFF Stat LAB 03/26/19 18:30 Completed COMPREHENSIVE METABOLIC PANEL Stat LAB 03/26/19 18:30 Completed CREATINE KINASE Stat LAB 03/26/19 18:30 Completed D-DIMER Stat LAB 03/26/19 18:30 Completed LIPASE Stat LAB 03/26/19 18:37 Completed OCCULT BLOOD, STOOL Stat LAB 03/26/19 18:25 Completed PARTIAL THROMBOPLASTIN TIME Stat LAB 03/26/19 18:30 Completed PROCALCITONIN Stat LAB 03/26/19 18:30 Completed PT WITH INR Stat LAB 03/26/19 18:30 Completed TROPONIN I Stat LAB 03/26/19 18:30 Completed 0.9 % Sodium Chloride [Saline Flush] MEDS 03/26/19 18:21 Discontinued 1 syr IVF PRN PRN Pantoprazole Sodium [Protonix IV] MEDS 03/26/19 18:43 Discontinued 40 mg IVP ONCE STA Sodium Chloride 0.9% [Sodium Chloride] 1,000 ml MEDS 03/26/19 18:23 Discontinued IV 125 mls/hr CT ABD/PEL WO RENAL STONE PROT Stat RADS 03/26/19 18:[address] CHEST W/O CONTRAST Stat RADS 03/26/19 18:22 Completed Medications Discontinued Medications Generic Name Dose Route Start Last Admin Trade Name Freq PRN Reason Stop Dose Admin Sodium Chloride 1,000 mls @ 125 mls/hr 03/26/19 18:23 03/26/19 19:47 Sodium Chloride IV 03/27/19 02:22 125 mls/hr .Q8H STA Administration Pantoprazole Sodium 40 mg 03/26/19 18:43 03/26/19 19:49 Protonix Iv IVP 03/26/19 18:44 40 mg ONCE STA Administration Sodium Chloride 1 syr 03/26/19 18:21 03/26/19 19:53 Saline Flush IVF 1 syr PRN PRN Administration To flush IV Vital Signs: Temp Pulse Resp BP Pulse Ox 03/26/19 17:13 98 F 90 18 107/76 98 Departure <DORETHA CAVAZOS - Last Filed: 03/26/19 19:54> - Departure Time of Disposition: 19:00 Pt referred to PMD for follow-up: Yes IPMP verified?: No Disposition Discussed With: Patient <JAMISON LEA - Last Filed: 03/31/19 18:51> - Departure Disposition: TSF SHORT-TRM HOSP Discharge Problem: Nausea, Vomiting, Lower GI bleed Instructions: Rectal Bleeding (ED) Condition: Fair Allergies/Adverse Reactions: Allergies tamsulosin HCl [From Flomax] Adverse Reaction (Verified 03/26/19 17:16) TAPE ADHESIVES Adverse Reaction (Uncoded 03/26/19 17:16) Home Medications: Ambulatory Orders Acetaminophen 650 mg PO TID PRN 03/11/14 Ferrous Sulfate 325 mg PO DAILY 03/11/14 Magnesium Hydroxide [Milk of Magnesia] 30 ml PO DAILY PRN 03/11/14 Clopidogrel Bisulfate [Plavix] 75 mg PO DAILY 12/28/14 Budesonide/Formoterol Fumarate [Symbicort 80-4.5 Mcg Inhaler] 2 puff IH BID Mycophenolate Mofetil [Cellcept] 1,500 mg PO BID 06/14/16 Nitroglycerin [Nitrostat] 0.4 mg SL Q5MIN X 3 DOSES PRN 06/14/16 Polyvinyl Alcohol [Artificial Tears] 1 drop EACHEYE DIRECTED PRN 06/14/16 Atorvastatin Calcium 40 mg PO BEDTIME 01/25/18 Diphenhydramine HCl [Benadryl] 25 mg PO Q8H PRN 01/25/18 Duloxetine HCl [Cymbalta] 60 mg PO DAILY 01/25/18 Fleets Enema 1 applic RC DIRECTED PRN 01/25/18 Hydrocodone Bit/Acetaminophen [[place] 7.5-325] 1 tab PO QID 01/25/18 Lorazepam [Ativan] 0.5 mg PO BEDTIME 01/25/18 Promethazine HCl [Phenergan Tab] 25 mg PO Q6H PRN 01/25/18 Zolpidem Tartrate [Ambien] 5 mg PO BEDTIME 01/25/18 Bacitracin/Polymyxin B Sulfate [Polysporin Ointment] 1 each TP DAILY 03/12/19 Bisacodyl [Laxative Suppository] 1 supp.rect RC DAILY PRN 03/12/19 Colestipol HCl [Colestid] 1 gm PO BID 03/12/19 Lidocaine HCl [Aspercreme] 76.5 gm TP DIRECTED PRN 03/12/19 Menthol/Zinc Oxide [Calmoseptine Ointment] 1 applic TP QSHIFT PRN 03/12/19 Pyridostigmine [place] [Mestinon] 60 mg PO QID 03/12/19 Mylanta Suspension 10 ml PO Q6HR 03/26/19 Prednisone 2.5 mg PO EVERY OTHER DAY 03/26/19 <DORETHA CAVAZOS - Last Filed: 03/26/19 19:54> <JAMISON LEA - Last Filed: 03/31/19 18:51> Additional Information: Assumed care of patient at 1900 hrs after discussion with Dr Arizmendi. Pt requesting I discuss with his daughter in [place]-his POA(and a Pharmicist) Discussed iwth her -dx GI bleeding. Currently Hemodynamicallly stable and Hgb7.6 Hct 23.9 IV infusing She prefers him be seen at [facility] as his Neurologist is on staff there/ (DORETHA CAVAZOS)
[2019-03-26] MEDS ORDERED: PROTONIX IV IVP STA (18:43)
--- NOTE | 2019-03-26 19:47 | CT ---
EXAM: CT scan thorax without contrast HISTORY: Cough COMPARISON: CT scan chest 03/12/2019 FINDINGS: Contiguous axial obtained through the thorax without contrast utilizing 5-mm collimation. Sagittal and coronal reconstructions were imaged and reviewed.. The thoracic inlet is unremarkable. . There is left-sided dual lead pacemaker. The heart is enlarged with small pericardial effusion me asuring 1.6 cm.. The ascending aorta is ectatic measuring 4.2 cm The right hemidiaphragm is elevate d. There is trace right pleural effusion with adjacent atelectasis and/or pneumonia, slightly more p rominent than on the prior examination. There is a stable 2 mm nodule within the right middle lobe.. Left lung is clear. IMPRESSION: Cardiomegaly with small pericardial effusion with coronary artery calcification. Ectatic ascending aorta. Small right pleural effusion with right basilar atelectasis and/or pneumonia
--- NOTE | 2019-03-26 19:48 | CT ---
EXAM: Noncontrast CT of the abdomen and pelvis. HISTORY: Abdominal pain. COMPARISON: 03/12/2019 TECHNIQUE: Contiguous axial images at 3 mm intervals were obtained from lung bases through the pelvi s. No contrast was given. Coronal reformats were reviewed. FINDINGS: The study is limited without contrast. CHEST: LUNG BASES: There is atelectasis in the right base. HEART: The heart size is within normal limits.Coronary calcifications and mitral valve calcification s are seen. ABDOMEN: Evaluation of the soft tissue organs is limited without contrast. LIVER: Noncontrast images of the liver show no solid mass lesion or intrahepatic ductal dilatation. BILIARY: The gallbladder is mildly distended. No stones are seen. The common bile duct is normal. SPLEEN: The spleen is unremarkable. PANCREAS: The pancreas shows no mass lesion or peripancreatic inflammation. ADRENAL GLANDS: The adrenal glands are normal. RENAL: The kidneys show no hydronephrosis or nephrolithiasis. There are no obstructing ureteral st ones. No solid mass lesions are identified. AORTA: Heavy aortic calcifications are seen. 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 RETROPERITONEUM: There is no retroperitoneal or mesenteric adenopathy. BOWEL: The bowel is unopacified. There is no obstruction or inflammatory change. There is no free fluid or free air. No significant inflammatory changes are seen. There is a air-fluid level in th e rectum. The appendix is not identified. There is no fluid or inflammation in the right lower quad rant PELVIS: BLADDER: The bladder is not well distended which limits evaluation. There is a punctate calcificat ion just inside the right renal vesicle junction. There is no significant hydroureter or hydronephro sis.. GENITOURINARY STRUCTURES: Unremarkable. OSSEOUS STRUCTURES: Disc narrowing and osteophyte formation is seen with severe neural foramen narro wing at multiple levels. IMPRESSION 1. Limited study without contrast.No acute intra-abdominal abnormality. No obstructing ureteral sto ginna. 2. Punctate calcification in the bladder on the right side at the renal vesicle junction. No signif icant hydronephrosis or hydroureter. Correlate for location of pain. This may be a stone in the rig ht UVJ. 3. 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 4. Severe degenerative changes of the spine.
== END 2019-03-26 20:45 | disposition short-term general hospital (02) ==
LOC: ED 17:12
DX: K92.2 Gastrointestinal hemorrhage, unspecified (principal); R11.2 Nausea with vomiting, unspecified; R53.1 Weakness; R10.9 Unspecified abdominal pain; Z79.899 Other long term (current) drug therapy
CPT/HCPCS: 36415; 80053; 82150; 82272; 82550; 82803; 83690; 84145; 84484; 85025; 85379; 85610; 85730; 93005; 93010; 96361; 96374; 99285

== ENCOUNTER 2019-05-13 10:20 | Outpatient (CLI) | END 2019-05-13 10:21 | disposition home or self-care (01) | LOC: NONPT 10:20 | PROVIDERS: ATTEND Internal Medicine | DX: R79.9 Abnormal finding of blood chemistry, unspecified (principal) | CPT/HCPCS: 85025 ==

== ENCOUNTER 2019-05-25 10:15 | Outpatient (CLI) | payer OTHER | END 2019-05-25 10:16 | disposition home or self-care (01) | LOC: NONPT 10:15 | PROVIDERS: ATTEND Internal Medicine | DX: D64.9 Anemia, unspecified (principal) | CPT/HCPCS: 85025 ==

== ENCOUNTER 2019-06-24 23:10 | Inpatient (IN) ==
[2019-06-25] MEDS ORDERED: ANCEF 1 GM in SODIUM CHLORIDE 100 ML IV ONE (00:05)
--- NOTE | 2019-06-25 00:49 | ED.PDOC ---
General ED Provider: Dr. ANUJA GILL Chief Complaint: Cellulitis Stated Complaint: Left arm swelling and redness for the past week Time Seen by Physician: 21:35 Mode of Arrival: Ambulance Information Source: Patient, Halfway and EMT Exam Limitations: No limitations Primary Care Provider: MARGARITA HEATH Nursing and Triage Documentation Reviewed and Agree: No Does patient meet sepsis criteria?: No System Inflammatory Response Syndrome: Not Applicable Sepsis Protocol: For patient's 13 years and over: Temp is 96.8 and below OR 101 and greater Pulse >90 BPM Resp >20/minute Acutely Altered Mental Status Are patient's symptoms suggestive of a new infection, such as: -Pneumonia -Skin, Soft Tissue -Endocarditis -UTI -Bone, Joint Infection -Implantable Device -Acute Abdominal Infection -Wound Infection -Meningitis -Blood Stream Catheter Infection -Unknown Skin Complaint Exam Skin Rash/Itching Complaint/Exam Onset/Duration: 1 week per patietn Symptoms Are: Still present Initial Severity: Moderate Current Severity: Moderate Location: Left upper extremity Potential Exposures: Reports Unknown Prior Treatment: none Aggravating: Reports None Alleviating: Reports None Associated Signs and Symptoms: Denies Difficulty breathing, Fever and Chills Skin Findings: Present Papules Body Picture: 1. Erythema and EDEMA Differential Diagnoses: Contact Dermatitis, Impetigo and Other (Cellulitis ) Review of Systems Review Of Systems Constitutional: Reports No symptoms Eyes: Reports No symptoms Ears, Nose, Mouth, Throat: Reports No symptoms Respiratory: Reports No symptoms Cardiac: Reports No symptoms GI: Reports No symptoms : Reports No symptoms Musculoskeletal: Reports Joint swelling and Muscle pain (Left upper extremity ) Skin: Reports Bruising Neurological: Reports No symptoms Endocrine: Reports No symptoms Hematologic/Lymphatic: Reports No symptoms All Other Systems: Reviewed and Negative [facility] Medical History (Updated 06/26/19 @ 10:21 by ANUJA GILL MD) COPD (chronic obstructive pulmonary disease) (Acute) Diabetes (Acute) Hypertension (Acute) Myocardial infarct (Acute) Pacemaker (Acute) Family History (Updated 06/25/19 @ 04:01 by HARRIET STACY RN) Other No known health problems Social History Do you feel safe at home: Yes History of physical abuse: No History of emotional abuse: No History of sexual abuse: No Would you like helpful sources: No Smoking and tobacco status: Former smoker Physical Exam Physical Exam Appearance: Ill-appearing Ill-appearing: Mild Pain Distress: Mild Eyes: VIK, EOMI and Conjunctiva clear ENT: Ears normal, Nose normal and Oropharynx normal Respiratory: Airway patent, Breath sounds clear, Breath sounds equal and Respirations nonlabored Cardiovascular: RRR, Pulses normal, No rub and No murmur GI/: Soft, Nontender, No masses, Bowel sounds normal and No Organomegaly Musculoskeletal: Normal strength, ROM intact, No calf tenderness and Edema Skin: Warm, Dry and Normal color Neurological: Sensation intact, Motor intact, Reflexes intact, Cranial nerves intact, Alert and Oriented Psychiatric: Affect appropriate and Mood appropriate Critical Care Note Critical Care Note Total Time (mins): 30 Course Course Hematology/Chemistry: 06/27/19 05:05 06/27/19 05:05 Orders, Labs, Meds: Lab Review 06/25/19 06/25/19 06/25/19 01:15 01:35 01:35 WBC 10.29 H RBC 3.48 L Hgb 10.0 L Hct 30.5 L MCV 87.6 MCH 28.7 MCHC 32.8 RDW Coeff of Bola 14.6 Plt Count 184 Neutrophils % (Manual) 58.0 Band Neutrophils % 19.0 H Lymphocytes % (Manual) 10.0 Monocytes % (Manual) 8.0 Eosinophils % (Manual) 0.0 Basophils % (Manual) 0.0 Metamyelocytes % 5.0 H Toxic Granulation 2+ Poikilocytosis 3+ Anisocytosis Not present Target Cells 1+ Acanthocytes (Spur) 1+ Schistocytes 1+ Sodium 133.5 L Potassium 3.52 Chloride 102.5 Carbon Dioxide 29.3 Anion Gap 5.22 BUN 21.0 H Creatinine 0.80 Estimated GFR (MDRD) 93.00 BUN/Creatinine Ratio 26.25 Glucose 98.1 Lactic Acid Calcium 8.98 Total Bilirubin 0.50 AST 19.3 ALT 8.6 Alkaline Phosphatase 48.1 L Total Creatine Kinase < 20.0 L Troponin I 0.028 Total Protein 5.76 L Albumin 3.22 L Globulin 2.54 Albumin/Globulin Ratio 1.26 Procalcitonin 0.08 06/25/19 01:35 WBC RBC Hgb Hct MCV MCH MCHC RDW Coeff of Bola Plt Count Neutrophils % (Manual) Band Neutrophils % Lymphocytes % (Manual) Monocytes % (Manual) Eosinophils % (Manual) Basophils % (Manual) Metamyelocytes % Toxic Granulation Poikilocytosis Anisocytosis Target Cells Acanthocytes (Spur) Schistocytes Sodium Potassium Chloride Carbon Dioxide Anion Gap BUN Creatinine Estimated GFR (MDRD) BUN/Creatinine Ratio Glucose Lactic Acid 1.04 Calcium Total Bilirubin AST ALT Alkaline Phosphatase Total Creatine Kinase Troponin I Total Protein Albumin Globulin Albumin/Globulin Ratio Procalcitonin Orders Category Date Time Status EKG-(ED ONLY) Stat CARDIO 06/25/19 00:04 Completed ACTIVITY .Early Mobilization for VTE Prevention CARE 06/25/19 01:32 Active INTAKE & OUTPUT Q8HR CARE 06/25/19 01:32 Active VITAL SIGNS Q8HR CARE 06/25/19 01:32 Active CARDIAC DIET DIETARY 06/25/19 Breakfast Ordered ED IV/MEDIPORT/POWERPORT .ONCE EMERGENCY 06/25/19 00:05 Active BASIC METABOLIC PANEL DAILY@0600 LAB 06/25/19 05:30 Completed BLOOD CULTURE (ED ONLY) Stat LAB 06/25/19 01:35 Results CBC W/ AUTO DIFF DAILY@0600 LAB 06/25/19 05:30 Completed CBC W/ AUTO DIFF DAILY@0600 LAB 06/26/19 04:35 Completed CBC W/ AUTO DIFF Stat LAB 06/25/19 01:35 Completed COMPREHENSIVE METABOLIC PANEL Stat LAB 06/25/19 01:35 Completed CREATINE KINASE Stat LAB 06/25/19 01:35 Completed LACTIC ACID Stat LAB 06/25/19 01:35 Completed MANUAL DIFFERENTIAL Routine LAB 06/25/19 05:30 Completed MANUAL DIFFERENTIAL Stat LAB 06/25/19 01:35 Completed PROCALCITONIN Stat LAB 06/25/19 01:15 Completed TROPONIN I Stat LAB 06/25/19 01:35 Completed 0.9 % Sodium Chloride [Saline Flush] MEDS 06/25/19 00:05 Discontinued 1 syr IVF PRN PRN Acetaminophen [Tylenol] MEDS 06/25/19 01:40 Active 650 mg PO TID PRN Atorvastatin Calcium [Lipitor] MEDS 06/25/19 21:00 Active 40 mg PO BEDTIME Bisacodyl [Dulcolax] MEDS 06/25/19 01:40 Active 10 mg RC DAILY PRN Budesonide/Formoterol Fumarate [Symbicort 80-4.5 Mcg MEDS 06/25/19 09:00 Active Inhaler] 2 puff IH BID Cefazolin Sodium [Ancef] MEDS 06/25/19 00:59 Discontinued 1 gm .ROUTE .STK-MED ONE Cefazolin Sodium [Ancef] 1 gm MEDS 06/25/19 00:05 Discontinued 0.9 % Sodium Chloride [Sodium Chloride] 100 ml IV ONCE Cefazolin Sodium/Dextrose,Iso [Ancef 1 gm/50 ml D5w] MEDS 06/25/19 05:00 Discontinued 1 gm in 50 ml IV Q8HR Clopidogrel Bisulfate [Plavix] MEDS 06/25/19 09:00 Active 75 mg PO DAILY Colestipol HCl [Colestid] MEDS 06/25/19 09:00 Active 1 gm PO BID Enoxaparin Sodium [Lovenox] MEDS 06/25/19 09:00 Active 40 mg SUBCUT DAILY Ferrous Sulfate MEDS 06/25/19 09:00 Active 325 mg PO DAILY Hydrocodone Bit/Acetaminophen [[place] 7.5-325] MEDS 06/25/19 09:00 Active 1 tab PO QID Prednisone MEDS 06/25/19 09:00 Active 2.5 mg PO EVERY OTHER DAY Vancomycin 1 gm MEDS 06/25/19 02:00 Discontinued Sodium Chloride 0.9% [Sodium Chloride] 500 ml IV Q12HR Zolpidem Tartrate [Ambien] MEDS 06/25/19 21:00 Active 5 mg PO BEDTIME lidocaine HCl [Aspercreme (lidocaine)] MEDS 06/25/19 01:40 Active 76.5 gm TP DIRECTED PRN pyridostigmine bromide [Mestinon] MEDS 06/25/19 09:00 Active 60 mg PO QID CHEST, 1V AP ONLY Stat RADS 06/25/19 00:04 Completed Medications Generic Name Dose Route Start Last Admin Trade Name Freq PRN Reason Stop Dose Admin Acetaminophen 650 mg 06/25/19 01:40 Tylenol PO TID PRN Fever >101 Hydrocodone Bitart/Acetaminophen 1 tab 06/25/19 09:00 06/26/19 20:18 [place] 7.5-325 PO 1 tab QID SUMA Administration Al Hydroxide/Mg Hydroxide 30 ml 06/25/19 21:36 06/26/19 10:07 Mylanta Susp PO 30 ml DAILY PRN Administration Heartburn Atorvastatin Calcium 40 mg 06/25/19 21:00 06/26/19 20:17 Lipitor PO 40 mg BEDTIME SUMA Administration Bisacodyl 10 mg 06/25/19 01:40 Dulcolax RC DAILY PRN Constipation Budesonide/Formoterol Fumarate 2 puff 06/25/19 09:00 06/26/19 20:18 Symbicort 80-4.5 Mcg Inhaler IH 2 puff BID SUMA Administration Ceftriaxone Sodium 1 gm 06/25/19 21:00 06/26/19 20:18 Rocephin 1 Gm Vial IM 06/28/19 20:59 1 gm BEDTIME SUMA Administration Clindamycin HCl 300 mg 06/25/19 17:30 06/26/19 20:17 Cleocin PO 06/28/19 17:29 300 mg TID SUMA Administration Clopidogrel Bisulfate 75 mg 06/25/19 09:00 06/26/19 09:44 Plavix PO 75 mg DAILY SUMA Administration Colestipol HCl 1 gm 06/25/19 09:00 06/26/19 20:16 Colestid PO 1 gm BID SUMA Administration Duloxetine HCl 60 mg 06/25/19 09:00 06/26/19 09:44 Cymbalta PO 60 mg DAILY [facility] Administration Enoxaparin Sodium 40 mg 06/25/19 09:00 06/26/19 09:48 Lovenox SUBCUT 40 mg DAILY [facility] Administration Ferrous Sulfate 325 mg 06/25/19 09:00 06/26/19 09:45 Ferrous Sulfate PO 325 mg DAILY [facility] Administration Furosemide 20 mg 06/27/19 06:30 Lasix Tab PO QDAC SUMA Lidocaine HCl 2.1 ml 06/25/19 21:00 06/26/19 20:19 Lidocaine Hcl 1% Sdv IM 2.1 ml BEDTIME SUMA Administration Non-Formulary Medication 76.5 gm 06/25/19 01:40 Lidocaine Hcl [Aspercreme (Lidocaine)] TP DIRECTED PRN MODERATE PAIN Non-Formulary Medication 60 mg 06/25/19 09:00 06/26/19 20:21 Pyridostigmine [place] [Mestinon] PO Not Given QID [facility] Non-Formulary Medication 1,500 mg 06/25/19 09:00 06/26/19 20:21 Mycophenolate Mofetil [Cellcept] PO Not Given BID [facility] Pantoprazole Sodium 40 mg 06/25/19 09:00 06/26/19 05:46 Protonix PO 40 mg QDAC SUMA Administration Potassium Chloride 40 meq 06/25/19 09:00 06/26/19 17:49 K-Dur PO 06/27/19 08:59 40 meq BIDWM SUMA Administration Potassium Chloride 10 meq 06/27/19 08:00 Micro-K Cap PO DAILYWM SUMA Prednisone 2.5 mg 06/25/19 09:00 06/25/19 09:43 Prednisone PO 2.5 mg EVERY OTHER DAY SUMA Administration Zolpidem Tartrate 5 mg 06/25/19 21:00 06/26/19 20:17 Ambien PO 5 mg BEDTIME SUMA Administration Discontinued Medications Generic Name Dose Route Start Last Admin Trade Name Freq PRN Reason Stop Dose Admin Al Hydroxide/Mg Hydroxide 30 ml 06/26/19 12:37 06/26/19 12:46 Mylanta Susp PO 06/26/19 12:38 30 ml ONCE STA Administration Furosemide 20 mg 06/25/19 06:30 06/25/19 05:31 Lasix IVP 20 mg QDAC SUMA Administration Furosemide 20 mg 06/25/19 08:32 06/25/19 10:21 Lasix IVP 06/25/19 08:33 20 mg ONCE STA Administration Cefazolin Sodium 1 gm/ Sodium 100 mls @ 200 mls/hr 06/25/19 00:05 06/25/19 01:03 Chloride IV 06/25/19 00:34 200 mls/hr ONCE ONE Administration Vancomycin HCl 1 gm/ Sodium 500 mls @ 200 mls/hr 06/25/19 02:00 06/25/19 03:26 Chloride IV 06/28/19 01:59 200 mls/hr Q12HR SUMA Administration Cefazolin Sodium/Dextrose 1 gm in 50 mls @ 75 mls/hr 06/25/19 05:00 06/25/19 06:44 Ancef 1 Gm/50 Ml D5w IV 06/28/19 04:59 75 mls/hr Q8HR SUMA Administration Vancomycin HCl 1 gm/ Sodium 250 mls @ 125 mls/min 06/25/19 09:00 Chloride IV 06/28/19 01:59 Q12HR SUMA Clindamycin Phosphate 600 mg/ 54 mls @ 50 mls/hr 06/25/19 13:00 06/25/19 13:00 Sodium Chloride IV 06/30/19 12:59 Not Given Q8HR SUMA Sodium Chloride 1 syr 06/25/19 00:05 06/25/19 05:31 Saline Flush IVF 1 syr PRN PRN Administration To flush IV Vital Signs: Temp Pulse Resp BP Pulse Ox 06/24/19 23:33 99.2 F 71 18 156/77 H 97 Discharge Plan Discharge Patient Disposition: ADMITTED INPATIENT Discharge Problem: Cellulitis, Left arm swelling ED Provider: ANUJA GILL Condition: Stable Discharge Date/Time: 06/25/19 04:00
[2019-06-25] MEDS ORDERED: ANCEF ONE (00:59)
[2019-06-25] MEDS ORDERED: LIDOCAINE HCL 76.5 GM TP PRN (01:40)
[2019-06-25] MEDS ORDERED: DULCOLAX RC PRN (01:40)
[2019-06-25] MEDS ORDERED: TYLENOL PO PRN (01:40)
[2019-06-25] MEDS ORDERED: VANCOMYCIN IV SCH (02:00)
[2019-06-25] MEDS ORDERED: SODIUM CHLORIDE IV SCH (02:00)
--- NOTE | 2019-06-25 03:50 | DI ---
EXAM: AP single view of the chest. HISTORY: Shortness of breath. FINDINGS: There is a left shoulder arthroplasty. There is a two lead pacemaker. The cardiac silhoue tte is enlarged. There is cephalization of the pulmonary vasculature. The left costophrenic angle i s clear. There is a small right pleural effusion. There is bibasilar atelectasis and/or pneumonia. Impression: Cardiomegaly with cephalization of the pulmonary vasculature. Small right pleural effusion. Bibasilar atelectasis and/or pneumonia.
[2019-06-25] MEDS ORDERED: ANCEF 1 GM/50 ML D5W 1 GM/50 ML BAG IV SCH (05:00)
[2019-06-25] MEDS ORDERED: LASIX IVP SCH (06:30)
[2019-06-25] MEDS ORDERED: LASIX IVP STA (08:32)
[2019-06-25] MEDS ORDERED: VANCOMYCIN 1 GM in SODIUM CHLORIDE 250 ML IV SCH (09:00)
[2019-06-25] MEDS: PLAVIX PO SCH (09:42)
[2019-06-25] MEDS: NORCO 7.5-325 PO SCH ×4 (09:42→20:41)
[2019-06-25] MEDS: K-DUR PO SCH ×2 (09:42→17:13)
[2019-06-25] MEDS: PROTONIX PO SCH (09:42)
[2019-06-25] MEDS: COLESTID PO SCH ×2 (09:43→20:40)
[2019-06-25] MEDS: CYMBALTA PO SCH (09:43)
[2019-06-25] MEDS: FERROUS SULFATE PO SCH (09:43)
[2019-06-25] MEDS: PREDNISONE PO SCH (09:43)
--- NOTE | 2019-06-25 09:52 | PCM.PROG ---
Attending Provider: ATTENDING PROVIDER: Dr. MARGARITA HEATH This patient is seen with Monet Hays, Nurse Practitioner. DATE OF SERVICE: 06/25/19 SUBJECTIVE: This 78 year old /WHITE M was hospitalized 06/25/19. The patient is resting comfortably. No fever. Left arm has extreme swelling and redness. He is complaining of tenderness of left shoulder to left hand. REVIEW OF SYSTEMS: CONSTITUTIONAL: No night sweats. No fatigue, malaise, lethargy. No fever or chills. Generalized weakness. HEENT: Eyes: No visual changes. No eye pain. No eye discharge. ENT: No runny nose. No epistaxis. No sinus pain. No odynophagia. No congestion. RESPIRATORY: No cough, no congestion. No hemoptysis. No shortness of breath. CARDIOVASCULAR: No angina symptoms. No CHF symptoms. No atypical chest pain for CAD. No palpitations. No orthopnea.. GASTROINTESTINAL: No abdominal pain. No nausea or vomiting. No diarrhea or constipation. No hematemesis. No hematochezia. GENITOURINARY: No urgency. No frequency. No dysuria. No hematuria. No obstructive symptoms. No discharge. No pain. No significant abnormal bleeding. MUSCULOSKELETAL: No musculoskeletal pain; no joint swelling. Left arm pain and edema. Leg edema. NEUROLOGICAL: Awake, alert, oriented to time, place and person. No headache. No neck pain. No syncope. No seizures. No dizziness. PSYCHIATRIC: Not anxious. No depression. No suicidal thoughts. No homicidal thoughts. SKIN: No rash. No lesions. No wounds. ENDOCRINE: No unexplained weight loss. No weight gain. HEMATOLOGIC/LYMPHATIC: No anemia. No purpura. No petechiae. No prolonged or excessive bleeding. No palpable lymph nodes. PHYSICAL EXAMINATION: GENERAL: The patient is awake, alert and oriented, lying in bed in no distress. VITAL SIGNS: Temperature 98.7 F, Pulse 57, Respiratory Rate 16, BP 146/83, Pulse Ox 99% HEENT: Head normocephalic, atraumatic. Eyes: Extraocular muscles are intact. Pupils are equal, round and reactive to light and accommodation. Ears: No lesions. Nose appeared normal. Throat: No exudate or erythema. NECK: Supple. No JVD, no carotid bruit. No lymphadenopathy or thyromegaly. LUNGS: Diminished breath sounds. Clear to auscultation. Percussion note normal. Chest symmetrical. HEART: S1, S2, no S3. Grade II systolic SAMIRA. No cyanosis or clubbing. No ascites. Pulses: Dorsalis pedis and posterior tibial pulses +1 to +2 both sides. ABDOMEN: Soft. Non-tender. Bowel sounds active. No CVA tenderness. No mass felt. EXTREMITIES: Left arm +3 pitting edema with erythema from left hand to left shoulder. +3 bilateral leg edema. Full range of motion of all extremities, equal. NEUROLOGIC: No focal deficit. Cranial nerves II through XII are grossly intact. No headache, no double vision or headache. SKIN: Not dry. Intact. Turgor-normal. LYMPHATIC: No palpable lymph nodes/no lymphedema. MUSCULOSKELETAL: Normal joints with no swelling. Muscle tone is normal. LAB REVIEW: 06/25/19 05:30 06/25/19 05:30 06/25/19 05:30: Sodium 133.1 L, Potassium 3.39 L, Chloride 103.2, Carbon Dioxide 29.2, Anion Gap 4.09, BUN 19.1, Creatinine 0.74, Estimated GFR (MDRD) 102.00, BUN/Creatinine Ratio 25.81, Glucose 97.2, Calcium 8.46 06/25/19 05:30: WBC 9.37, RBC 3.41 L, Hgb 9.7 L, Hct 29.8 L, MCV 87.4, MCH 28.4, MCHC 32.6, RDW Coeff of Bola 14.6, Plt Count 159, Neutrophils % (Manual) 62.0, Band Neutrophils % 13.0 H, Lymphocytes % (Manual) 10.0, Monocytes % (Manual) 9.0, Eosinophils % (Manual) 1.0, Basophils % (Manual) 0.0, Metamyelocytes % 5.0 H, Toxic Granulation 2+, Poikilocytosis 3+, Anisocytosis Not present, Helmet Cells 1+, Acanthocytes (Spur) 1+, Schistocytes 1+ 06/25/19 01:35: Lactic Acid 1.04 06/25/19 01:35: Sodium 133.5 L, Potassium 3.52, Chloride 102.5, Carbon Dioxide 29.3, Anion Gap 5.22, BUN 21.0 H, Creatinine 0.80, Estimated GFR (MDRD) 93.00, BUN/Creatinine Ratio 26.25, Glucose 98.1, Calcium 8.98, Total Bilirubin 0.50, AST 19.3, ALT 8.6, Alkaline Phosphatase 48.1 L, Total Creatine Kinase < 20.0 L, Troponin I 0.028, Total Protein 5.76 L, Albumin 3.22 L, Globulin 2.54, Albumin/Globulin Ratio 1.26 06/25/19 01:35: WBC 10.29 H, RBC 3.48 L, Hgb 10.0 L, Hct 30.5 L, MCV 87.6, MCH 28.7, MCHC 32.8, RDW Coeff of Bola 14.6, Plt Count 184, Neutrophils % (Manual) 58.0, Band Neutrophils % 19.0 H, Lymphocytes % (Manual) 10.0, Monocytes % (Manual) 8.0, Eosinophils % (Manual) 0.0, Basophils % (Manual) 0.0, Metamyelocytes % 5.0 H, Toxic Granulation 2+, Poikilocytosis 3+, Anisocytosis Not present, Target Cells 1+, Acanthocytes (Spur) 1+, Schistocytes 1+ 06/25/19 01:15: Procalcitonin 0.08 ASSESSMENT: Please see below. 1. Severe edema left upper extremity with cellulitis 2. Leg edema 3. Aortic stenosis 4. Coronary artery disease 5. Myasthenia gravis PLAN: 1. x-ray left shoulder and clavicle 2. Rocephin 1 gram IV daily 3. Clindamycin 600mg IV Q 8 hours 4. Lasix 20mg today and Lasix 40mg IV tomorrow 5. Resume all home medications 6. Keep left arm elevated 7. Discontinue Incef and Vancomycin 8. Potassium 40mg BID 9. Venous scan Plan and coordination of the patient's care discussed in the presence of Cork Insulator Helper and nurse. SCRIBED BY: Christopher COELHO scribed while in presence of service performed by Dr. Heath/Monet Hays APRN on 06/25/19 ([id number])
[2019-06-25] MEDS: SYMBICORT 80-4.5 MCG INHALER IH SCH ×2 (10:03→20:39)
[2019-06-25] MEDS: LOVENOX SUBCUT SCH (10:21)
[2019-06-25] MEDS ORDERED: CLEOCIN 600 MG in SODIUM CHLORIDE 50 ML IV SCH (13:00)
--- NOTE | 2019-06-25 13:53 | DI ---
EXAM: Two views of the left shoulder. History: Left shoulder pain and swelling with redness. Findings: Left shoulder arthroplasty hardware with osseous resorption of the adjacent scapula. Post surgical changes of the distal clavicle. Osteopenia. Pacer device. No definite acute fractures are seen. Impression: Left shoulder arthroplasty hardware with osseous resorption of the scapular glenoid. No definite acute fractures are seen.
--- NOTE | 2019-06-25 14:45 | US ---
EXAM: Left upper extremity venous Doppler History: Left upper extremity pain. Technique: Multiple sonographic images through the left upper extremity were obtained. Color duplex Doppler was used to interrogate vascular flow. Findings: The left internal jugular, subclavian, brachial, cephalic and basilic veins demonstrate sp ontaneous flow with normal compression and no augmentation. The left axillary, radial and ulnar vein s were not well visualized. There is left upper extremity subcutaneous edema. Impression: 1. No sonographic evidence for deep venous thrombosis within the visualized veins. 2. Left upper extremity subcutaneous edema
[2019-06-25] MEDS: PYRIDOSTIGMINE BROMIDE 60 MG PO SCH ×4 (17:05→20:42)
[2019-06-25] MEDS: MYCOPHENOLATE MOFETIL 1500 MG PO SCH ×2 (17:06→20:42)
[2019-06-25] MEDS: CLEOCIN PO SCH ×2 (18:09→20:40)
[2019-06-25] MEDS: LIPITOR PO SCH (20:41)
[2019-06-25] MEDS: AMBIEN PO SCH (20:41)
[2019-06-25] MEDS: ROCEPHIN 1 GM VIAL IM SCH (20:43)
[2019-06-25] MEDS: LIDOCAINE HCL 1% SDV IM SCH (20:43)
[2019-06-25] MEDS ORDERED: ROCEPHIN 1 GM/50 ML D5W 1 GM/50 ML BAG IV SCH (21:00)
[2019-06-25] MEDS: MYLANTA SUSP PO PRN (21:54)
[2019-06-26] MEDS: PROTONIX PO SCH (05:46)
[2019-06-26] MEDS ORDERED: LASIX IVP ONE (06:00)
[2019-06-26] MEDS ORDERED: FERROUS SULFATE ONE (09:00)
[2019-06-26] MEDS: CLEOCIN PO SCH ×3 (09:44→20:17)
[2019-06-26] MEDS: PLAVIX PO SCH (09:44)
[2019-06-26] MEDS: CYMBALTA PO SCH (09:44)
[2019-06-26] MEDS: COLESTID PO SCH ×2 (09:44→20:16)
[2019-06-26] MEDS: K-DUR PO SCH ×2 (09:45→17:49)
[2019-06-26] MEDS: FERROUS SULFATE PO SCH (09:45)
[2019-06-26] MEDS: NORCO 7.5-325 PO SCH ×4 (09:45→20:18)
[2019-06-26] MEDS: MYCOPHENOLATE MOFETIL 1500 MG PO SCH ×2 (09:46→20:21)
[2019-06-26] MEDS: LOVENOX SUBCUT SCH (09:48)
[2019-06-26] MEDS: PYRIDOSTIGMINE BROMIDE 60 MG PO SCH ×4 (10:00→20:21)
[2019-06-26] MEDS: SYMBICORT 80-4.5 MCG INHALER IH SCH ×2 (10:05→20:18)
[2019-06-26] MEDS: MYLANTA SUSP PO PRN (10:07)
[2019-06-26] MEDS ORDERED: MYLANTA SUSP PO STA (12:37)
[2019-06-26] MEDS: AMBIEN PO SCH (20:17)
[2019-06-26] MEDS: LIPITOR PO SCH (20:17)
[2019-06-26] MEDS: ROCEPHIN 1 GM VIAL IM SCH (20:18)
[2019-06-26] MEDS: LIDOCAINE HCL 1% SDV IM SCH (20:19)
[2019-06-27] MEDS: LASIX TAB PO SCH (05:32)
[2019-06-27] MEDS: PROTONIX PO SCH (05:32)
[2019-06-27] MEDS ORDERED: FERROUS SULFATE ONE (09:00)
[2019-06-27] MEDS: COLESTID PO SCH ×2 (09:07→20:22)
[2019-06-27] MEDS: NORCO 7.5-325 PO SCH ×4 (09:07→20:23)
[2019-06-27] MEDS: PREDNISONE PO SCH (09:07)
[2019-06-27] MEDS: K-DUR PO SCH (09:07)
[2019-06-27] MEDS: MICRO-K CAP PO SCH (09:07)
[2019-06-27] MEDS: CYMBALTA PO SCH (09:07)
[2019-06-27] MEDS: PLAVIX PO SCH (09:07)
[2019-06-27] MEDS: CLEOCIN PO SCH ×3 (09:08→20:22)
[2019-06-27] MEDS: FERROUS SULFATE PO SCH (09:08)
[2019-06-27] MEDS: LOVENOX SUBCUT SCH (09:16)
[2019-06-27] MEDS: MYCOPHENOLATE MOFETIL 1500 MG PO SCH ×2 (09:16→20:23)
[2019-06-27] MEDS: PYRIDOSTIGMINE BROMIDE 60 MG PO SCH ×4 (09:16→20:23)
[2019-06-27] MEDS: SYMBICORT 80-4.5 MCG INHALER IH SCH ×2 (09:23→20:23)
[2019-06-27] MEDS: MYLANTA SUSP PO PRN ×2 (12:04→23:30)
[2019-06-27] MEDS: ROCEPHIN 1 GM VIAL IM SCH (20:18)
[2019-06-27] MEDS: LIDOCAINE HCL 1% SDV IM SCH (20:19)
[2019-06-27] MEDS: AMBIEN PO SCH (20:22)
[2019-06-27] MEDS: LIPITOR PO SCH (20:22)
[2019-06-27] MEDS ORDERED: BENADRYL PO STA (22:57)
[2019-06-28] MEDS: PROTONIX PO SCH (05:47)
[2019-06-28] MEDS: LASIX TAB PO SCH (05:47)
[2019-06-28] MEDS: PLAVIX PO SCH (08:30)
[2019-06-28] MEDS: COLESTID PO SCH ×2 (08:30→21:17)
[2019-06-28] MEDS: FERROUS SULFATE PO SCH (08:31)
[2019-06-28] MEDS: NORCO 7.5-325 PO SCH ×4 (08:31→21:17)
[2019-06-28] MEDS: CYMBALTA PO SCH (08:31)
[2019-06-28] MEDS: CLEOCIN PO SCH ×3 (08:31→21:17)
[2019-06-28] MEDS: MICRO-K CAP PO SCH (08:31)
[2019-06-28] MEDS: MYCOPHENOLATE MOFETIL 1500 MG PO SCH ×2 (08:32→21:15)
[2019-06-28] MEDS: SYMBICORT 80-4.5 MCG INHALER IH SCH ×2 (08:32→21:15)
[2019-06-28] MEDS: PYRIDOSTIGMINE BROMIDE 60 MG PO SCH ×4 (08:33→21:14)
[2019-06-28] MEDS: LOVENOX SUBCUT SCH (08:33)
[2019-06-28] MEDS: MYLANTA SUSP PO PRN ×2 (08:48→21:23)
[2019-06-28] MEDS ORDERED: FERROUS SULFATE ONE (09:00)
--- NOTE | 2019-06-28 10:38 | PCM.PROG ---
Attending Provider: ATTENDING PROVIDER: Dr. MARGARITA HEATH DATE OF SERVICE: 06/28/19 SUBJECTIVE: This 78 year old /WHITE M was hospitalized 06/25/19 with possibility of cellulitis of left upper extremity, mainly was tissue edema with hemosideran pigmentation as it is chronic because of inactivity, chronic steroid therapy and malnutrition. In any case the patient has been treated with Rocephin and Clindamycin. Eulalio bandage wrap around left upper extremity has milked the edema down quite a lot. The patient is afebrile for past few days. REVIEW OF SYSTEMS: CONSTITUTIONAL: No night sweats. No fatigue, malaise, lethargy. No fever or chills. HEENT: Eyes: No visual changes. No eye pain. No eye discharge. ENT: No runny nose. No epistaxis. No sinus pain. No odynophagia. No congestion. RESPIRATORY: No cough, no congestion. No hemoptysis. No shortness of breath. CARDIOVASCULAR: No angina symptoms. No CHF symptoms. No atypical chest pain for CAD. No palpitations. No orthopnea.. GASTROINTESTINAL: Appetite is normal. No abdominal pain. No nausea or vomiting. No diarrhea or constipation. No hematemesis. No hematochezia. GENITOURINARY: No urgency. No frequency. No dysuria. No hematuria. No obstructive symptoms. No discharge. No pain. No significant abnormal bleeding. MUSCULOSKELETAL: No musculoskeletal pain; no joint swelling. NEUROLOGICAL: Awake, alert, oriented to time, place and person. No headache. No neck pain. No syncope. No seizures. No dizziness. PSYCHIATRIC: Not anxious. No depression. No suicidal thoughts. No homicidal thoughts. SKIN: No rash. No lesions. No wounds. ENDOCRINE: No unexplained weight loss. No weight gain. HEMATOLOGIC/LYMPHATIC: No anemia. No purpura. No petechiae. No prolonged or excessive bleeding. No palpable lymph nodes. PHYSICAL EXAMINATION: GENERAL: The patient is awake, alert and oriented, lying/sitting in bed in no distress. VITAL SIGNS: Temperature 98 F, Pulse 66, Respiratory Rate 16, BP 146/82, Pulse Ox 100% HEENT: Head normocephalic, atraumatic. Eyes: Extraocular muscles are intact. Pupils are equal, round and reactive to light and accommodation. Ears: No lesions. Nose appeared normal. Throat: No exudate or erythema. NECK: Supple. No JVD, no carotid bruit. No lymphadenopathy or thyromegaly. LUNGS: Decreased breath sounds. Clear to auscultation. Percussion note normal. Chest symmetrical. HEART: S1, S2, no S3. No murmurs. No cyanosis or clubbing. No ascites. Pulses: Dorsalis pedis and posterior tibial pulses +1 to +2 both sides. ABDOMEN: Soft. Non-tender. Bowel sounds active. No CVA tenderness. No mass felt. EXTREMITIES: Edema is much less with no evidence of infection right or left upper extremity. Full range of motion of all extremities, equal. NEUROLOGIC: No focal deficit. Cranial nerves II through XII are grossly intact. No headache, no double vision or headache. SKIN: Warm and dry. Intact. Turgor-normal. LYMPHATIC: No palpable lymph nodes/no lymphedema. MUSCULOSKELETAL: Normal joints with no swelling. Muscle tone is normal. LAB REVIEW: 06/28/19 05:36 06/28/19 05:36 06/28/19 05:36: Sodium 132.8 L, Potassium 4.16, Chloride 100.9, Carbon Dioxide 31.2 H, Anion Gap 4.86, BUN 21.6 H, Creatinine 0.78, Estimated GFR (MDRD) 96.00, BUN/Creatinine Ratio 27.69, Glucose 103.8, Calcium 8.71, Total Bilirubin 0.38, AST 35.8, ALT 8.8, Alkaline Phosphatase 50.8 L, Total Protein 5.82 L, Albumin 3.07 L, Globulin 2.75, Albumin/Globulin Ratio 1.11 06/28/19 05:36: WBC 7.93, RBC 3.22 L, Hgb 9.2 L, Hct 27.5 L, MCV 85.4, MCH 28.6, MCHC 33.5, RDW Coeff of Bola 14.4, Plt Count 210, Neutrophils % (Manual) 86.0 H, Lymphocytes % (Manual) 6.0 L, Monocytes % (Manual) 7.0, Eosinophils % (Manual) 1.0, Anisocytosis Not present ASSESSMENT: Please see below. 1. Bilateral upper extremity edema, left more than right with possibility of cellulitis seems to be resolving. 2. Cardiovascular and respiratory status stable. PLAN: 1. Continue with Eulalio bandage around left upper extremity. 2. Improve nutritional status. 3. Continue antibiotics. 4. Decrease Ativan. Plan and coordination of the patient's care discussed in the presence of Shoe Repair Cobbler and nurse. CONDITION: Stable SCRIBED BY: KALA ROPER Rn Mds scribed while in presence of service performed by Dr. MARGARITA HEATH on 06/28/19 ([id number])
--- NOTE | 2019-06-28 11:22 | PN ---
DATE OF SERVICE: 06/27/19 SUBJECTIVE: 78 year old white male with multiple medical problems with coronary artery disease with bypass, pacemaker, myasthenia gravis with generalized osteoporosis, osteoarthritis and reflux disease, severe chronic lung disease, dementia was hospitalized with possible cellulitis of the left upper extremity. The patient mostly has hemosiderin pigmentation from chronic lower extremity edema. His tissues are lax from chronic steroids therapy for a long time. More or less bed ridden. In any case the patient has eulalio bandages applied to both upper extremity and the swelling and the edema has been milked out more or less. Both upper extremities are looking much better in fact the right upper extremity has much less swelling than what it was before. The patient is eating better. The nutritional status improvement may make a big difference with tissue having less swelling. Explained to the patient. REVIEW OF SYSTEMS: CONSTITUTIONAL: No night sweats. No fatigue, malaise, lethargy. No fever or chills. HEENT: Eyes: No visual changes. No eye pain. No eye discharge. ENT: No runny nose. No epistaxis. No sinus pain. No sore throat. No odynophagia. No congestion. RESPIRATORY: No cough, no congestion. No hemoptysis. No shortness of breath. CARDIOVASCULAR: No angina symptoms. No CHF symptoms. No atypical chest pain for CAD. No palpitations. No PND. No orthopnea. GASTROINTESTINAL: No abdominal pain. No nausea or vomiting. No diarrhea or constipation. No hematemesis. No hematochezia. GENITOURINARY: No urgency. No frequency. No dysuria. No hematuria. No obstructive symptoms. No discharge. No pain. No significant abnormal bleeding. MUSCULOSKELETAL: No musculoskeletal pain; no joint swelling. Pain is much less on the left upper extremity. The patient is followed by orthopedic surgeon Dr. Machado, gets shots in the joints. NEUROLOGICAL: No headache. No neck pain. No syncope. No seizures. No dizziness. PSYCHIATRIC: Not anxious. No depression. No suicidal thoughts. No homicidal thoughts. SKIN: No rash. No lesions. No wounds. ENDOCRINE: No unexplained weight loss. No weight gain. HEMATOLOGIC/LYMPHATIC: No anemia. No purpura. No petechiae. No prolonged or excessive bleeding. No palpable lymph nodes. PHYSICAL EXAMINATION: VITAL SIGNS: Temperature 98.9, pulse 82, respiratory rate 20, blood pressure 150/80 and pulse ox 100%. HEENT: Head normocephalic, atraumatic. Eyes: Extraocular muscles are intact. Pupils are equal, round and reactive to light and accommodation. Ears: No lesions. Nose appeared normal. Throat: No exudate or erythema. NECK: Supple. No JVD, no carotid bruit. No lymphadenopathy or thyromegaly. LUNGS: Decreased breath sounds. Clear to auscultation. Percussion note normal. Chest symmetrical. HEART: S1, S2, no S3. No murmurs. No cyanosis or clubbing. No ascites. Pulses: Dorsalis pedis and posterior tibial pulses +1 to +2 bilaterally. ABDOMEN: Soft. Nontender. Bowel sounds active. No CVA tenderness. No mass felt. EXTREMITIES: No edema. Full range of motion of all extremities, equal. NEUROLOGIC: No focal deficit. Cranial nerves II through XII are grossly intact. No headache, no double vision or headache. SKIN: Not dry. Intact. Turgor - normal. LYMPHATIC: No palpable lymph nodes/no lymphedema. MUSCULOSKELETAL: Normal joints with no swelling. Muscle tone is normal. LABS: Hgb 8.7, hct 26, WBC 8,700 normal differential, creatinine 0.7, BUN 23, potassium 4.7. ASSESSMENT: 1. Left upper extremity cellulitis which is questionable seems to be resolving. Leg swelling and upper extremity swelling much less than before 2. Mental status is practically normal with normal cardiovascular status PLAN: 1. Advised to continue antibiotics 2. Eulalio bandage wrap 3. The patient is advised to followup with the Neurologist, French Instructor for pacemaker and coronary artery disease and Pain management for shots in his joints. 4. The patient is a DNR. OVER ALL NUTRITIONAL STATUS/MEDICAL STATUS: Very poor TIME SPENT: More than 30 minutes. Plan and coordination of the patient's care discussed in the presence of nurse. LIBORIO
--- NOTE | 2019-06-28 11:36 | HP ---
DATE OF SERVICE: 06/25/19 HISTORY OF PRESENT ILLNESS: This is an 78-year-old white male who the detention contacted me today. He is a resident of [place] stating that he had redness and swelling of the left upper extremity. He was brought to the emergency room. He has not had any fever. He does have a history of chronic edema. He has generalized weakness. The patient often refuses to get up out of bed. PAST MEDICAL HISTORY: Dyslipidemia Aortic stenosis BPH History of falls Polyarthritis Depression Anxiety Insomnia Myasthenia gravis GERD Pacemaker Low back pain Hypertension Coronary artery disease Diabetes mellitus Type [address] Marr for pacemaker checks every 6 months, sees Dr. Martin for his myasthenia gravis every 3 to 4 months, sees Dr. Thomas for his prostate. Also sees Dr. Machado, orthopedist for multiple injections, polyarthritis. Of note: At one time, the patient did have a history of paroxysmal atrial fibrillation. He had previously been on both Eliquis and Plavix; however, due to his significant anemia, these have both been discontinued. PAST SURGICAL HISTORY: Appendectomy Left shoulder replacement Pacemaker placement REVIEW OF SYSTEMS: CONSTITUTIONAL: Positive for generalized weakness. No night sweats. No fatigue, malaise, lethargy. No fever or chills. HEENT: Eyes: No visual changes. No eye pain. No eye discharge. ENT: No runny nose. No epistaxis. No sinus pain. No sore throat. No odynophagia. No ear pain. No congestion. RESPIRATORY: No cough, no congestion. No hemoptysis. No shortness of breath. CARDIOVASCULAR: No angina symptoms. No CHF symptoms. No atypical chest pain for CAD. No palpitations. No PND. No orthopnea. GASTROINTESTINAL: No abdominal pain. No nausea or vomiting. No diarrhea or constipation. No hematemesis. No hematochezia. GENITOURINARY: No urgency. No frequency. No dysuria. No hematuria. No obstructive symptoms. No discharge. No pain. No significant abnormal bleeding. MUSCULOSKELETAL: No musculoskeletal pain. No joint swelling. No arthritis. NEUROLOGICAL: No headache. No neck pain. No syncope. No seizures. No dizziness. PSYCHIATRIC: Not anxious. No depression. No suicidal thoughts. No homicidal thoughts. SKIN: Left arm redness and swelling. Positive for leg edema. ENDOCRINE: No unexplained weight loss. No weight gain. HEMATOLOGIC/LYMPHATIC: No anemia. No purpura. No petechiae. No prolonged or excessive bleeding. No palpable lymph nodes. PERSONAL/FAMILY/SOCIAL HISTORY: He is , a resident [facility]. His daughter is his POA. MEDICATIONS: (HOME) Ferrous Sulfate 325 mg p.o. b.i.d. Acetaminophen 650 mg p.o. t.i.d. p.r.n. Budesonide-Formoterol (Symbicort) 80-4.5 mcg/actuation HFA inhaler two puff b.i.d. Artificial Tears one drop opththalmic as directed p.r.n. Cellcept 1,500 mg p.o. b.i.d. ALLERGIES: TAMSULOSIN HCI, (TAPE, ADHESIVES) PHYSICAL EXAMINATION: GENERAL: The patient is alert and oriented times three. HEENT: Head normocephalic, atraumatic. Eyes: Extraocular muscles are intact. Pupils are equal, round and reactive to light and accommodation. Ears: No lesions. Nose appeared normal. Throat: No exudate or erythema. NECK: Supple. No JVD, no carotid bruit. No lymphadenopathy or thyromegaly. LUNGS: Clear to auscultation. Percussion note normal. Chest symmetrical. HEART: S1, S2, no S3. Grade II/ systolic ejection murmur. No cyanosis or clubbing. No ascites. Pulses: Dorsalis pedis and posterior tibial pulses +1 to +2 bilaterally. ABDOMEN: Soft. Nontender. Bowel sounds active. No CVA tenderness. No mass felt. EXTREMITIES: +2 bilateral leg edema, +3 edema left upper extremity with redness and erythema from the dorsal aspect of the hand to the left shoulder. Full range of motion of all extremities, equal. NEUROLOGIC: No focal deficit. Cranial nerves II through XII are grossly intact. No headache, no double vision or headache. SKIN: Not dry. Intact. Turgor - normal. LYMPHATIC: No palpable lymph nodes/no lymphedema. MUSCULOSKELETAL: Normal joints with no swelling. Muscle tone is normal. LABS: White count 9.3, hemoglobin 9.7, hematocrit 29. Sodium 133, potassium 3.3, BUN 19, creatinine 0.74, glucose 97. Chest x-ray was normal. Venous scan left upper extremity normal. X-ray of the left clavicle and arms normal. ASSESSMENT: 1. DEPENDENT LEFT ARM EDEMA WITH UNDERLYING CELLULITIS 2. LEG EDEMA 3. AORTIC STENOSIS 4. GENERALIZED WEAKNESS 5. ANEMIA 6. HISTORY OF GI BLEED 7. MYASTHENIA GRAVIS 8. HYPOKALEMIA PLAN: 1. We will admit. 2. Routine telemetry orders. 3. CBC, CMP daily. 4. Rocephin 1 gm IV daily. 5. Clindamycin 600 mg IV q.8hr. 6. Regular diet. TIME SPENT: More than 70 minutes. MTDD
--- NOTE | 2019-06-28 13:27 | PN ---
DATE OF SERVICE: 06/26/19 SUBJECTIVE: 78 year old white male hospitalized with swelling of the left upper extremity with possibility of cellulitis. The patient's condition has improved. He says that his pain is much less. He has an rogelio bandage wrapped around his left upper extremity and the edema has been milked out to some extent. REVIEW OF SYSTEMS: CONSTITUTIONAL: No night sweats. No fatigue, malaise, lethargy. No fever or chills. HEENT: Eyes: No visual changes. No eye pain. No eye discharge. ENT: No runny nose. No epistaxis. No sinus pain. No sore throat. No odynophagia. No congestion. RESPIRATORY: No cough, no congestion. No hemoptysis. No shortness of breath. CARDIOVASCULAR: No angina symptoms. No CHF symptoms. No atypical chest pain for CAD. No palpitations. No PND. No orthopnea. GASTROINTESTINAL: No abdominal pain. No nausea or vomiting. No diarrhea or constipation. No hematemesis. No hematochezia. GENITOURINARY: No urgency. No frequency. No dysuria. No hematuria. No obstructive symptoms. No discharge. No pain. No significant abnormal bleeding. MUSCULOSKELETAL: No musculoskeletal pain; no joint swelling. Has been able to use upper extremities to some extent. NEUROLOGICAL: No headache. No neck pain. No syncope. No seizures. No dizziness. PSYCHIATRIC: Not anxious. No depression. No suicidal thoughts. No homicidal thoughts. SKIN: No rash. No lesions. No wounds. ENDOCRINE: No unexplained weight loss. No weight gain. HEMATOLOGIC/LYMPHATIC: No anemia. No purpura. No petechiae. No prolonged or excessive bleeding. No palpable lymph nodes. PHYSICAL EXAMINATION: GENERAL: The patient is stubborn and uncooperative. She seems to be oriented to time, place and person. VITAL SIGNS: Temperature 98.1, pulse 70, respiratory rate 14, blood pressure 136/70 and pulse ox 100% on 2 liters. HEENT: Head normocephalic, atraumatic. Eyes: Extraocular muscles are intact. Pupils are equal, round and reactive to light and accommodation. Ears: No lesions. Nose appeared normal. Throat: No exudate or erythema. NECK: Supple. No JVD, no carotid bruit. No lymphadenopathy or thyromegaly. LUNGS: Decreased breath sounds but clear to auscultation. Percussion note normal. Chest symmetrical. HEART: S1, S2, no S3. No murmurs. No cyanosis or clubbing. No ascites. Pulses: Dorsalis pedis and posterior tibial pulses +1 to +2 bilaterally. ABDOMEN: Soft. Nontender. Bowel sounds active. No CVA tenderness. No mass felt. EXTREMITIES: Edema much less in both upper extremities. Lower extremities are the same as before with some edema. Full range of motion of all extremities, equal. Hemosiderin pigmentations noted on both upper extremity more on the left than the right. NEUROLOGIC: No focal deficit. Cranial nerves II through XII are grossly intact. No headache, no double vision or headache. SKIN: Not dry. Intact. Turgor - normal. LYMPHATIC: No palpable lymph nodes/no lymphedema. MUSCULOSKELETAL: Normal joints with no swelling. Muscle tone is normal. The patient has Kyphosis has been almost bed ridden. Doesn't want to move. He complains about things all the time. Wants DNR. Again re-informed. LABS: Hgb 9, Hct 27, WBC 10,000 normal differential, creatinine 0.7, BUN 21, potassium 4.1. ASSESSMENT: 1. Bilateral upper extremity left more than the right with possibility of cellulitis seems to be resolving. His cardiovascular and respiratory status is stable CONDITION: Stable. PLAN: 1. Continue Clindamycin and Rocephin 2. Continue the left upper extremity and right upper extremity wrapped with rogelio bandage. 3. Refuses any kind of physical therapy 4. Left upper extremity should be elevated but that bothers him 5. The patient's skin is very fragile and delicate. There is a lot of lose connected subcutaneous tissue. He is on chronic prednisone therapy with Myasthenia gravis and also chronic lung disease 6. Is almost bed ridden. PROGNOSIS: Poor TIME SPENT: More than 30 minutes. Plan and coordination of the patient's care discussed in the presence of nurse. LIBORIO
--- NOTE | 2019-06-28 13:42 | PN ---
DATE OF SERVICE: 06/25/19 SUBJECTIVE: The patient was seen and examined with the Nurse Practitioner. The patient's left upper extremity mainly has swelling from tissue laxity along with a lot of hemosiderin pigmentation with chronic edema he has. Cellulitis is a remote possibility but he is being covered with IV antibiotics. The patient was seen and examined with Nurse Practitioner. We are going to put rogelio bandage around and try to mild the edema part of the upper extremity. The evening when I checked the patient the patient says that he is a lot better, the swelling is much less than before. The pain is under control. The patient is afebrile with WBC of 10,000. No evidence of active infection. The patient has generalized anasarca with bilateral leg edema and also right upper extremity edema noted. He is practically bed ridden with multiple medical problems. His prognosis is poor and his attitude is extremely poor. I talked to him alone and at that time he indicated that he doesn't want to be resuscitated or have a tube in his throat or respirator or artificial way of breathing. The patient is on Clindamycin and Rocephin. CONDITION: Stable PROGNOSIS: Poor. TIME SPENT: More than 30 minutes. Plan and coordination of the patient's care discussed in the presence of nurse. LIBORIO
[2019-06-28] MEDS: ROCEPHIN 1 GM VIAL IM SCH (21:15)
[2019-06-28] MEDS: LIDOCAINE HCL 1% SDV IM SCH (21:16)
[2019-06-28] MEDS: AMBIEN PO SCH (21:17)
[2019-06-28] MEDS: LIPITOR PO SCH (21:17)
[2019-06-29] MEDS: PROTONIX PO SCH (05:54)
[2019-06-29] MEDS: LASIX TAB PO SCH (05:54)
[2019-06-29] MEDS ORDERED: FERROUS SULFATE ONE (09:00)
[2019-06-29] MEDS: MYLANTA SUSP PO PRN ×2 (10:16→16:21)
[2019-06-29] MEDS: PYRIDOSTIGMINE BROMIDE 60 MG PO SCH ×5 (10:16→20:51)
[2019-06-29] MEDS: COLESTID PO SCH ×2 (10:17→20:49)
[2019-06-29] MEDS: SYMBICORT 80-4.5 MCG INHALER IH SCH ×2 (10:17→20:49)
[2019-06-29] MEDS: MICRO-K CAP PO SCH (10:17)
[2019-06-29] MEDS: CYMBALTA PO SCH (10:18)
[2019-06-29] MEDS: CLEOCIN PO SCH ×3 (10:18→20:49)
[2019-06-29] MEDS: FERROUS SULFATE PO SCH (10:18)
[2019-06-29] MEDS: PLAVIX PO SCH (10:18)
[2019-06-29] MEDS: NORCO 7.5-325 PO SCH ×4 (10:18→20:50)
[2019-06-29] MEDS: PREDNISONE PO SCH (10:19)
[2019-06-29] MEDS: LOVENOX SUBCUT SCH (10:25)
[2019-06-29] MEDS: MYCOPHENOLATE MOFETIL 1500 MG PO SCH ×2 (10:45→20:50)
--- NOTE | 2019-06-29 11:17 | PCM.PROG ---
Attending Provider: ATTENDING PROVIDER: Dr. MARGARITA HEATH DATE OF SERVICE: 06/29/19 SUBJECTIVE: This 78 year old /WHITE M was hospitalized 06/25/19 with left upper extremity edema, possible cellulitis. He has subcutaneous edema from multiple factors like malnutrition, inactive and practically bedridden with some element of infection but has been treated with Cleocin. No signs of infection. No fe quincy. Eulalio bandage wrap around left upper extremity has helped to reduce swelling. Respiratory status is stable. REVIEW OF SYSTEMS: CONSTITUTIONAL: No night sweats. No fatigue, malaise, lethargy. No fever or chills. HEENT: Eyes: No visual changes. No eye pain. No eye discharge. ENT: No runny nose. No epistaxis. No sinus pain. No odynophagia. No congestion. RESPIRATORY: No cough, no congestion. No hemoptysis. No shortness of breath. CARDIOVASCULAR: No angina symptoms. No CHF symptoms. No atypical chest pain for CAD. No palpitations. No orthopnea.. GASTROINTESTINAL: No abdominal pain. No nausea or vomiting. No diarrhea or constipation. No hematemesis. No hematochezia. GENITOURINARY: No urgency. No frequency. No dysuria. No hematuria. No obstructive symptoms. No discharge. No pain. No significant abnormal bleeding. MUSCULOSKELETAL: No musculoskeletal pain; no joint swelling. NEUROLOGICAL: Awake, alert, oriented to time, place and person. No headache. No neck pain. No syncope. No seizures. No dizziness. PSYCHIATRIC: Not anxious. No depression. No suicidal thoughts. No homicidal thoughts. SKIN: No rash. No lesions. ENDOCRINE: No unexplained weight loss. No weight gain. HEMATOLOGIC/LYMPHATIC: No anemia. No purpura. No petechiae. No prolonged or excessive bleeding. No palpable lymph nodes. PHYSICAL EXAMINATION: GENERAL: The patient is awake, alert and oriented, lying/sitting in bed in no distress. VITAL SIGNS: Temperature 98.4 F, Pulse 68, Respiratory Rate 17, BP 146/75, Pulse Ox 100% HEENT: Head normocephalic, atraumatic. Eyes: Extraocular muscles are intact. Pupils are equal, round and reactive to light and accommodation. Ears: No lesions. Nose appeared normal. Throat: No exudate or erythema. NECK: Supple. No JVD, no carotid bruit. No lymphadenopathy or thyromegaly. LUNGS: Clear to auscultation. Percussion note normal. Chest symmetrical. HEART: S1, S2, no S3. No murmurs. No cyanosis or clubbing. No ascites. Pulses: Dorsalis pedis and posterior tibial pulses +1 to +2 both sides. ABDOMEN: Soft. Non-tender. Bowel sounds active. No CVA tenderness. No mass felt. EXTREMITIES: Left upper extremity edema less with no sign of infection. Full range of motion of all extremities, equal. NEUROLOGIC: No focal deficit. Cranial nerves II through XII are grossly intact. No headache, no double vision or headache. SKIN: Warm and dry. Intact. Turgor-normal. LYMPHATIC: No palpable lymph nodes/no lymphedema. MUSCULOSKELETAL: Normal joints with no swelling. Muscle tone is normal. LAB REVIEW: 06/29/19 05:25 06/29/19 05:25 06/29/19 05:25: Sodium 133.0 L, Potassium 4.19, Chloride 99.4, Carbon Dioxide 33.0 H, Anion Gap 4.79, BUN 20.3 H, Creatinine 0.98, Estimated GFR (MDRD) 74.00, BUN/Creatinine Ratio 20.71, Glucose 93.2, Calcium 9.03, Total Bilirubin 0.32, AST 25.2, ALT 9.9, Alkaline Phosphatase 48.0 L, Total Protein 5.63 L, Albumin 3.01 L, Globulin 2.62, Albumin/Globulin Ratio 1.14 06/29/19 05:25: WBC 5.84, RBC 3.33 L, Hgb 9.4 L, Hct 28.9 L, MCV 86.8, MCH 28.2, MCHC 32.5, RDW Coeff of Bola 14.3, Plt Count 271, Neutrophils % (Manual) 68.0, Lymphocytes % (Manual) 18.0, Monocytes % (Manual) 12.0 H, Eosinophils % (Manual) 2.0, Anisocytosis Not present ASSESSMENT: Please see below. 1. Left upper extremity edema/possible cellulitis resolving. 2. Prognosis is not good considering continued steroid therapy for myasthenia gravis and loose subcutaneous tissue with malnutrition. PLAN: 1. Continue Cleocin. 2. Discontinue Rocephin. 3. Continue to wrap left upper extremity. 4. Continue rest of medications. Plan and coordination of the patient's care discussed in the presence of Hired Help and nurse. CONDITION: Stable SCRIBED BY: KALA ROPER Brazing Machine Tender scribed while in presence of service performed by Dr. MARGARITA HEATH on 06/29/19 ([id number])
[2019-06-29] MEDS: LIPITOR PO SCH (20:49)
[2019-06-29] MEDS: AMBIEN PO SCH (20:50)
[2019-06-29] MEDS: LIDOCAINE HCL 1% SDV IM SCH (20:51)
[2019-06-30] MEDS: LASIX TAB PO SCH (06:04)
[2019-06-30] MEDS: PROTONIX PO SCH (06:04)
[2019-06-30] MEDS: MYLANTA SUSP PO PRN (08:54)
[2019-06-30] MEDS: SYMBICORT 80-4.5 MCG INHALER IH SCH (08:56)
[2019-06-30] MEDS: PYRIDOSTIGMINE BROMIDE 60 MG PO SCH ×2 (08:57→13:42)
[2019-06-30] MEDS: MYCOPHENOLATE MOFETIL 1500 MG PO SCH (08:57)
[2019-06-30] MEDS: COLESTID PO SCH (08:58)
[2019-06-30] MEDS: MICRO-K CAP PO SCH (08:58)
[2019-06-30] MEDS: CLEOCIN PO SCH (08:59)
[2019-06-30] MEDS: PLAVIX PO SCH (08:59)
[2019-06-30] MEDS: CYMBALTA PO SCH (09:00)
[2019-06-30] MEDS ORDERED: FERROUS SULFATE PO SCH (09:00)
[2019-06-30] MEDS ORDERED: FERROUS SULFATE ONE (09:00)
[2019-06-30] MEDS: LOVENOX SUBCUT SCH (09:00)
[2019-06-30] MEDS: NORCO 7.5-325 PO SCH ×2 (09:00→13:41)
[2019-06-30] MEDS ORDERED: IMODIUM PO PRN (10:47)
--- NOTE | 2019-06-30 10:49 | DS ---
DATE OF SERVICE: 06/30/19 FINAL DIAGNOSIS: 1. CELLULITIS LEFT UPPER EXTREMITY 2. LEG EDEMA 3. AORTIC STENOSIS 4. ANEMIA 5. GENERALIZED WEAKNESS 6. MYASTHENIA GRAVIS 7. DEPRESSION 8. ANXIETY 9. GERD 10. HYPERTENSION 11. CAD 12. PACEMAKER 13. POLYARTHRITIS 14. DYSLIPIDEMIA 15. DIABETES MELLITUS TYPE 2 16. LEFT SHOULDER REPLACEMENT DISCHARGE INSTRUCTIONS: 1. Discharge back to longterm. 2. Continue Eulalio wrap to left upper extremity and hand. 3. Moisturize skin daily. 4. CBC, CMP in one week and then CBC, CMP every 3 months. 5. Lipids, PSA q.6mths. MEDICATIONS AT DISCHARGE: Ferrous Sulfate 325 mg p.o. b.i.d. Acetaminophen 650 mg p.o. t.i.d. p.r.n. Symbicort 80-4.5 mcg/actuation Hfa Aerosol Inhaler two puff b.i.d. Artificial Tears one drop as directed p.r.n. Cellcept 1,500 mg p.o. b.i.d. Nitroglycerin 0.4 mg sublingual q.5 min times three doses p.r.n. Cymbalta 60 mg p.o. daily Zolpidem 5 mg p.o. bedtime Promethazine 25 mg p.o. q.6h p.r.n. Diphenhydramine 25 mg p.o. q.8hr p.r.n. Atorvastatin 40 mg p.o bedtime Mestinon 60 mg p.o. q.i.d. Lidocaine 76.5 g topical as directed p.r.n. Calmoseptine one application topical q.shift p.r.n. Prednisone 2.5 mg p.o. every other day Potassium Chloride 10 mEq p.o. daily [place] one tab p.o. q.i.d. Multivitamin one tab p.o. b.i.d. Loperamide 4 mg p.o. q.6h p.r.n. Maalox advanced 10 mL p.o. q.6h p.r.n. Carafate 1 gm p.o. a.c. h.s. Finasteride 5 mg p.o. daily Aspirin 81 mg p.o. daily Pantoprazole 40 mg p.o. daily Nystatin one application topical q.8h p.r.n. NEW PRESCRIPTIONS: Imodium b.i.d. p.r.n. for loose bowel movement or diarrhea Mylanta 30 cc t.i.d. p.r.n. Clindamycin 300 mg t.i.d. for 7 days. DISCONTINUED MEDICATIONS: None DIET INSTRUCTIONS: Regular diet. ACTIVITY: As the patient tolerates. SMOKING: Nonsmoker DISEASE SPECIFIC EDUCATION: The importance of nutrition and hydration Medication for infection Eulalio wrapping of left arm HOSPITAL COURSE: This 78 year old /WHITE M was hospitalized 06/25/19 with left upper extremity swelling with possibility of infection. The patient has sedentary lifestyle with steroids for a long time and with aging, tissue has LAX tissue with subcutaneous edema more on left than right. In any case, he was treated with Rocephin and Cleocin. Condition is improved. Eulalio bandage is wrapped to milk edema of the left upper extremity. It looks a lot better with small superficial ulcers not actively infected. Will discharge on Cleocin. The patient is to be continued on the rest of medications he was on before with minor changes. The patient's cardiovascular and respiratory status is stable. The patient has multiple medical problems, practically bedridden and doesn't walk. Overall, general health is poor. Tissues are lax with halfway steroid therapy. Prognosis is poor considering his cardvioascular status and lung problems besides myasthenia griavis. Per [facility] of [facility], the patient is DNR. CONDITION: Stable. PROGNOSIS: Poor. TIME SPENT: More than 60 minutes. SCRIBED BY: KALA ROPER, Manager Work scribed while in presence of service performed by Dr. MARAGRITA HEATH on 06/30/19 ([id number]) [facility] [place]
--- NOTE | 2019-06-30 11:02 | PCM.PROG ---
Attending Provider: ATTENDING PROVIDER: Dr. MARGARITA HEATH DATE OF SERVICE: 06/30/19 SUBJECTIVE: This 78 year old /WHITE M was hospitalized 06/25/19 with left upper extremity swelling with possibility of infection. The patient has sedentary lifestyle with steroids for a long time and with aging, tissue has LAX tissue with subcutaneous edema more on left than right. In any case, he was treated with Rocephin and Cleocin. Condition is improved. Eulalio bandage is wrapped to milk edema of the left upper extremity. It looks a lot better with small superficial ulcers not actively infected. Will discharge on Cleocin. The patient is to be continued on the rest of medications he was on before with camille r changes. The patient's cardiovascular and respiratory status is stable. REVIEW OF SYSTEMS: CONSTITUTIONAL: No night sweats. No fatigue, malaise, lethargy. No fever or chil ls. HEENT: Eyes: No visual changes. No eye pain. No eye discharge. ENT: No runny nose. No epistaxis. No sinus pain. No odynophagia. No congestion. RESPIRATORY: No cough, no congestion. No hemoptysis. No shortness of breath. CARDIOVASCULAR: No angina symptoms. No CHF symptoms. No atypical chest pain for CAD. No palpitations. No orthopnea.. GASTROINTESTINAL: No abdominal pain. No nausea or vomiting. No diarrhea or constipation. No hematemesis. No hematochezia. GENITOURINARY: No urgency. No frequency. No dysuria. No hematuria. No obstructive symptoms. No discharge. No pain. No significant abnormal bleeding. MUSCULOSKELETAL: Generalized mild swelling of both upper and lower extremities. No musculoskeletal pain; no joint swelling. NEUROLOGICAL: Awake, alert, oriented to time, place and person. No headache. No neck pain. No syncope. No seizures. No dizziness. PSYCHIATRIC: Not anxious. No depression. No suicidal thoughts. No homicidal thoughts. SKIN: No rash. No lesions. No wounds. ENDOCRINE: No unexplained weight loss. No weight gain. HEMATOLOGIC/LYMPHATIC: No anemia. No purpura. No petechiae. No prolonged or excessive bleeding. No palpable lymph nodes. PHYSICAL EXAMINATION: GENERAL: The patient is awake, alert and oriented, lying/sitting in bed in no distress. VITAL SIGNS: Temperature 98.5 F, Pulse 72, Respiratory Rate 17, BP 142/82, Pulse Ox 97% HEENT: Head normocephalic, atraumatic. Eyes: Extraocular muscles are intact. Pupils are equal, round and reactive to light and accommodation. Ears: No lesions. Nose appeared normal. Throat: No exudate or erythema. NECK: Supple. No JVD, no carotid bruit. No lymphadenopathy or thyromegaly. LUNGS: Clear to auscultation. Percussion note normal. Chest symmetrical. HEART: S1, S2, no S3. No murmurs. No cyanosis or clubbing. No ascites. Pulses: Dorsalis pedis and posterior tibial pulses +1 to +2 both sides. ABDOMEN: Soft. Non-tender. Bowel sounds active. No CVA tenderness. No mass felt. EXTREMITIES: Generalized mild swelling of both left upper and lower extremities. No edema. Full range of motion of all extremities, equal. NEUROLOGIC: No focal deficit. Cranial nerves II through XII are grossly intact. No headache, no double vision or headache. SKIN: Warm and dry. Intact. Turgor-normal. LYMPHATIC: No palpable lymph nodes/no lymphedema. MUSCULOSKELETAL: Normal joints with no swelling. Muscle tone is normal. LAB REVIEW: 06/30/19 05:17 06/30/19 05:17 06/30/19 05:17: Sodium 132.9 L, Potassium 4.05, Chloride 97.9 L, Carbon Dioxide 34.0 H, Anion Gap 5.05, BUN 19.1, Creatinine 0.89, Estimated GFR (MDRD) 82.00, BUN/Creatinine Ratio 21.46, Glucose 93.2, Calcium 9.21, Total Bilirubin 0.38, AST 27.7, ALT 12.1, Alkaline Phosphatase 53.5 L, Total Protein 5.93 L, Albumin 3.24 L, Globulin 2.69, Albumin/Globulin Ratio 1.20 06/30/19 05:17: WBC 5.74, RBC 3.34 L, Hgb 9.3 L, Hct 29.1 L, MCV 87.1, MCH 27.8, MCHC 32.0, RDW Coeff of Bola 14.3, Plt Count 294, Neutrophils % (Manual) 71.0, Lymphocytes % (Manual) 9.0 L, Monocytes % (Manual) 10.0, Eosinophils % (Manual) 5.0, Reactive Lymphocytes 5.0, Anisocytosis Not present ASSESSMENT: 1. Left upper extremity edema/possible cellulitis resolving. 2. Prognosis is not good considering continued steroid therapy for myasthenia gravis and loose subcutaneous tissue wth malnutrition. Addendum: The patient has multiple medical problems, practically bedridden, doesn't walk. Overall general health is poor. Tissues are lax with usp steroid therapy. Prognosis is poor considering his cardiovascular and lung problems besides myasthenia gravis. Per POA of health the patient is DNR. PLAN: 1. Discharge back to snf. 2. Apply light lotion and wrap with Eulalio left upper extremity. 3. Clindamycin 300 mg t.i.d. times 7 days. 4. Imodium b.i.d. p.r.n. loose bowel movement or diarrhea. 5. Mylanta 30 cc t.i.d. p.r.n. Plan and coordination of the patient's care discussed in the presence of Mechanical Cad Designer and nurse. CONDITION: Stable. PROGNOSIS: Poor. SCRIBED BY: KALA ROPER Baler Operator scribed while in presence of service performed by Dr. MARGARITA HEATH on 06/30/19 ([id number])
--- NOTE | 2019-06-30 11:15 | PN ---
BILLING 06/25/19 ADMISSION DAY LEVEL 5 06/26/19 INTERMEDIATE 06/27/19 INTERMEDIATE 06/28/19 INTERMEDIATE 06/29/19 INTERMEDIATE 06/30/19 DISCHARGE MTDD
[2019-06-30 14:19] VITALS: BP 132/76; TEMP 98
== END 2019-06-30 14:50 | DRG 603 ==
LOC: ED 23:31 → MEDSURG B 06-25 02:26
PROVIDERS: ADMIT Internal Medicine; ATTEND Internal Medicine
DX: G70.00 Myasthenia gravis without (acute) exacerbation; E78.5 Hyperlipidemia, unspecified; F41.8 Other specified anxiety disorders; E87.6 Hypokalemia; L03.112 Cellulitis of left axilla; K21.9 Gastro-esophageal reflux disease without esophagitis; E11.9 Type 2 diabetes mellitus without complications; M79.10 Myalgia, unspecified site; I25.10 Atherosclerotic heart disease of native coronary artery without angina pectoris; R60.0 Localized edema; E46 Unspecified protein-calorie malnutrition; R53.1 Weakness; M13.0 Polyarthritis, unspecified; I35.0 Nonrheumatic aortic (valve) stenosis; I10 Essential (primary) hypertension; D64.9 Anemia, unspecified